=== PATIENT | male | born 1995 | race Caucasian/White ===

== ENCOUNTER 2018-12-12 21:07 | Emergency (ER) | payer OTHER, SELFPAY ==
[2018-12-12 21:08] VITALS: BP 142/86; PULSE 103; RESP 16; TEMP 36.6; O2SAT 98; BMI 28.2
--- NOTE | 2018-12-12 21:45 | ED.VISSUMM ---
- ER Visit Summary Date of Service: 12/12/18 Chief Complaint: Right thumb laceration History of Present Illness: The patient is a 23 M hand dominant. Past medical history. Tetanus is about 9 years old and he does not want an updated. He was working on his car when he cut his right thumb on the dorsum on sheet-metal. This occurred about 5 PM. He denies any numbness. He has normal range of motion. Denies any other injuries. Physical Examination: Well-appearing young male. Vital signs stable afebrile. Lungs are clear. Heart regular rhythm no murmur. Abdomen is soft. Right hand the dorsum of the right thumb tween the MCP and interphalangeal joint is about a 3 cm laceration above the skin and subcu tissue. Currently there is no bleeding. No signs of foreign body or infection. He has full flexion and extension against resistance of the right thumb. He can extend to 180 degrees. There is no bony deformity or tenderness. There is no signs of infection. The distal thumb is neurovascular intact with normal touch sensation and cap refill. Test Results: None Emergency Department Course and Treatment: Note: Right thumb laceration. At the patient wash his hands all thoroughly in the sink. The area was then locally anesthetized with lidocaine. Wound was cleaned with Shur-Clens explored and irrigated. Closed using three 4-0 Ethilon simple interrupted sutures. Proper hemostasis wound closure obtained. Patient tolerated procedure well. Treatment Plan: Wound care. Suture removal 10 days. Return if any signs of infection or problems. Disposition: Discharge Impression: Right thumb laceration 3 cm with ER repair This note was generated with PowerCard dictation software. It may contain incorrect words, spelling, and punctuation that were not noted in review of the chart prior to signing ED Disposition - Plan for ED Patient: Referrals: Care Physician,No Primary [Primary Care Provider] -
--- NOTE | 2018-12-12 21:47 | ED.DEP ---
ED Disposition - Plan for ED Patient: Disposition: Home or Assisted Living Instructions: LACERATION, Hand Referrals: Ga Otero MD [STAFF PHYSICIAN] - 10 Day for suture removal Additional Instructions: Wound clean and dry. Apply antibiotic ointment daily. Stitches out in 10 days. Return if any signs of infection.
== END 2018-12-12 22:08 | disposition home or self-care (01) ==
PROVIDERS: Emergency Provider Emergency Medicine
DX: S61.011A Laceration without foreign body of right thumb without damage to nail, initial encounter (principal); W26.8XXA Contact with other sharp object(s), not elsewhere classified, initial encounter; Y93.89 Activity, other specified
CPT/HCPCS: 12002; 99284

== ENCOUNTER 2019-06-18 23:16 | Emergency (ER) | payer OTHER, SELFPAY ==
[2019-06-18 23:16] VITALS: BP 125/60; PULSE 84; RESP 18; TEMP 36.6; O2SAT 98; BMI 28.7
--- NOTE | 2019-06-18 23:23 | ED.DCSUM_ITS ---
History of Present Illness Chief Complaint: Upper Extremity Injury Informant: Patient Onset: Today Context: Gradual Onset Timing: Continuous Current Severity: Moderate Maximum Severity: Moderate Narrative: Patient is a 23-year-old male with no significant medical history that presents to the emergency department with atraumatic right wrist pain. Patient states he had a fracture when he was in eighth grade. He woke this morning with pain in his wrist. He states most of the pain is with wrist extension. He cannot recall any specific trauma. He is not taken anything for his pain. He denies any radiation into the hand or weakness. Prior similar symptoms: Yes Recent Illness/Hospitalization: No Past Medical History - Allergies and Home Meds Allergies/Adverse Reactions: Allergies No Known Allergies Allergy (Verified 06/18/19 23:18) Primary Care Physician: Care Physician,No Primary [Primary Care Provider] - Prior records reviewed: Yes Past Medical History: None Surgical History: no surgical history Smoking Status: Never smoker Review of Systems General: Denies: Chills, Fever, Sweats Eyes: Denies: Visual changes - bilaterally, Diplopia ENT: Denies: Rhinorrhea, Sore throat Cardiovascular: Denies: Chest pain, Palpitations Respiratory: Denies: Dyspnea, Cough, Dyspnea on exertion Gastrointestinal: Denies: Abdominal pain, Nausea, Vomiting, Diarrhea, Melena, Hematochezia Genitourinary: Denies: Dysuria, Hematuria, Frequency Musculoskeletal: Denies: Back pain, Extremity Pain Skin: Denies: Rash, Wounds Neurological: Denies: Headache, Weakness, Numbness Physical Exam Vital Signs/Narrative: Vital Signs Temp Pulse Resp BP Pulse Ox 06/18/19 23:16 97.9 F 84 18 125/60 H 98 Inital Vital Signs reviewed: Yes General: Well nourished, Well developed, No Acute Distress Head: Normocephalic, Atraumatic Eyes: Perrl, EOMI ENT: Moist mucous membranes, No rhinorrhea Neck: Supple, Nontender Cardiovascular: Regular rate, Regular rhythm, No murmurs Respiratory: No distress, CTA bilaterally, Chest nontender Abdomen: Soft, Nontender, Nondistended, Normal bowel sounds Back: Nontender, Normal Inspection Extremities: No edema, Tenderness - Tender on dorsum of right wrist. Normal pulses. No laxity or erythema. Skin: Normal color, No rash Neurological: Alert, Oriented x3, Cranial nerves II-XII grossly intact, Normal Strength, Normal Sensation Psychological: Normal affect, Normal Mood Diagnostic/Tx/Re-eval Clinical Impression(s) from Imaging Studies Wrist X-Ray 06/18/19 23:28 IMPRESSION: Normal x-ray examination of the wrist. Electronically Signed: Lisandro Lai MD at 23:44 EDT , Service support , - Medical Decision Making The patient presents with atraumatic right wrist pain. It does seem more tendinitis in nature. He has had no trauma. He does have repetitive use of the right wrist when he was at work. I did obtain plain films. These are unremarka ble for acute fracture. The patient was placed in a Velcro splint for comfort. He will be given anti-inflammatories and outpatient orthopedic follow-up as needed. Impression 1. Tendinitis right wrist ED Disposition - Plan for ED Patient: Instructions: ED Sprain Wrist Prescriptions: Naproxen [Naprosyn] 500 mg PO BID PRN #20 tab Prescription Printed Referrals: Andrea Marshall MD [STAFF PHYSICIAN] - 3-5 Days if not improving
--- NOTE | 2019-06-18 23:28 | RAD_ITS ---
STUDY: X-RAY - RIGHT WRIST REASON FOR EXAM: Male, 23 years old. WOKE UP WITH RIGHT WRIST PAIN AND DENIES INJURY -- PT HAS BROKEN WRIST BEFORE TECHNIQUE: 3 view(s) of the wrist were obtained. COMPARISON: None. FINDINGS: Normal visualized distal radius and ulna. Normal radiocarpal articulation. Normal distal radioulnar articulation. Normal carpal bones. Normal carpal articulations. Normal carpometacarpal articulation of the thumb. Normal second through fifth carpometacarpal articulations. Normal visualized metacarpal bones. The soft tissue structures are unremarkable. There is no demonstrated acute fracture. RAD/Wrist min 3 Views IMPRESSION: Normal x-ray examination of the wrist. Electronically Signed: Lisandro Lai MD at 23:44 EDT , Service support ,
[2019-06-18 23:56] VITALS: BP 125/60; PULSE 84; RESP 18; O2SAT 98
== END 2019-06-18 23:57 | disposition home or self-care (01) ==
LOC: ED 23:41
PROVIDERS: Emergency Provider Emergency Medicine
DX: M77.9 Enthesopathy, unspecified (principal)
CPT/HCPCS: 73110; 99283

== ENCOUNTER 2019-06-24 22:14 | Emergency (ER) | payer OTHER, SELFPAY ==
[2019-06-24 22:16] VITALS: BP 158/83; PULSE 108; RESP 18; TEMP 37.3; O2SAT 98; BMI 28.1
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
== END 2019-06-24 23:02 | disposition home or self-care (01) ==
PROVIDERS: Emergency Provider Emergency Medicine
DX: S40.012A Contusion of left shoulder, initial encounter (principal); S00.83XA Contusion of other part of head, initial encounter; V89.2XXA Person injured in unspecified motor-vehicle accident, traffic, initial encounter; Y93.89 Activity, other specified; Y92.410 Unspecified street and highway as the place of occurrence of the external cause; Z72.0 Tobacco use
CPT/HCPCS: 99282

== ENCOUNTER 2020-03-23 21:15 | Emergency (ER) | payer OTHER, SELFPAY ==
[2020-03-23 21:16] VITALS: BP 114/70; PULSE 112; RESP 16; TEMP 37.6; O2SAT 100; BMI 27.6
--- NOTE | 2020-03-23 21:41 | ED.VIS.GEN ---
History of Present Illness Chief Complaint: General Illness Narrative: Patient presents with myalgias, subjective fevers, and generalized illness he is worried about Covid. He did not lose his sense of smell or taste. He has no respiratory difficulties. He has no abdominal pain chest pain shortness of breath or urinary symptoms. He denies any neck pain or neck stiffness. He does not have a headache. Review of systems: All systems negative except as indicated General: Denies: Fever. He admits to generalized weakness and illness Eyes: Denies: Visual changes - bilaterally ENT: Denies: Rhinorrhea, Sore throat Cardiovascular: Denies: Chest pain Respiratory: Denies: Dyspnea, Cough Gastrointestinal: Denies: Abdominal pain, Nausea, Vomiting Genitourinary: Denies: Dysuria Musculoskeletal: Myalgias Skin: Denies: Rash Neurological: Denies: Headache, no focal weakness Psych: Reports: negative Hematologic: Denies: Easy bruising, Easy bleeding Physical exam General: Well nourished, Well developed, No Acute Distress, he is relatively comfortable in the bed. Head: Normocephalic, Atraumatic Eyes: Conjunctiva not pale ENT: Moist mucous membranes Neck: Supple, Nontender, No lymphadenopathy Cardiovascular: Regular rate, Regular rhythm Respiratory: No distress, CTA bilaterally Abdomen: Soft, Nontender, Nondistended Back: Nontender, Normal Inspection. Negative for: CVA tenderness Extremities: Nontender, No edema Skin: Normal color, No rash Neurological: Alert, Normal Strength, Normal Sensation Psychological: Normal affect Past Medical History - Allergies and Home Meds Allergies/Adverse Reactions: Allergies No Known Allergies Allergy (Verified 03/23/20 21:18) Primary Care Physician: Care Physician,No Primary [Primary Care Provider] - Past Medical History: None Surgical History: no surgical history Smoking Status: Former smoker Physical Exam Vital Signs/Narrative: Vital Signs Temp Pulse Resp BP Pulse Ox 03/23/20 21:16 99.7 F H 112 H 16 114/70 100 Diagnostic/Tx/Re-eval - Medical Decision Making I will test for Covid, however in the meantime I told the patient he needs to quarantine, at this time he does not have a job but he is to quarantine from anyone else. He is young healthy and unremarkable vitals other than slight tachycardia at home believe further testing is needed he appears well. ED Disposition - Plan for ED Patient: Disposition: Home or Assisted Living Diagnosis: COVID-19 virus IgM antibody test result unknown Instructions: Coronavirus Disease 2019 (COVID-19): Overview, Coronavirus Disease 2019 (COVID-19): Caring for Yourself or Others, Preventing the Spread of Infection Understanding Isolation Procedures Referrals: Care Physician,No Primary [Primary Care Provider] - 2 Days
[2020-03-23 22:01] VITALS: BP 149/57; PULSE 71; RESP 16; O2SAT 99
== END 2020-03-23 22:02 | disposition home or self-care (01) ==
LOC: ED 21:59
PROVIDERS: Emergency Provider Emergency Medicine
DX: U07.1 COVID-19 (principal); Z87.891 Personal history of nicotine dependence
CPT/HCPCS: 87635; 99282; U0003

== ENCOUNTER 2021-09-24 12:10 | Emergency (ER) | payer OTHER, SELFPAY ==
[2021-09-24 12:10] VITALS: BP 120/85; PULSE 99; RESP 14; TEMP 36.5; O2SAT 97; BMI 25.1
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
[2021-09-24] MEDS: HYDROcodone Bitartrate/Apap 5/325 Tablet PO (13:35)
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
== END 2021-09-24 14:49 | disposition home or self-care (01) ==
PROVIDERS: Emergency Provider Emergency Medicine; Visit Provider Emergency Medicine
DX: S09.90XA Unspecified injury of head, initial encounter (principal); S00.01XA Abrasion of scalp, initial encounter; S43.52XA Sprain of left acromioclavicular joint, initial encounter; J45.909 Unspecified asthma, uncomplicated; V49.40XA Driver injured in collision with unspecified motor vehicles in traffic accident, initial encounter; Z87.891 Personal history of nicotine dependence
CPT/HCPCS: 70450; 73030; 99283

== ENCOUNTER 2022-01-22 13:06 | Emergency (ER) | payer MEDICAID, SELFPAY ==
[2022-01-22 13:07] VITALS: BP 138/95; PULSE 102; RESP 18; TEMP 36.6; O2SAT 100; BMI 28.7
--- NOTE | 2022-01-22 13:56 | EX.ED.VIS.PS ---
HPI HPI - Psych History of Present Illness Chief Complaint: Suicidal Detail of Chief Complaint: Depressed Informant: patient Onset/Context/Timing Onset: Weeks Context: Gradual Onset Timing: Intermittent Current Severity: Mild Maximum Severity: Mild Associated Symptoms Associated Symptoms - Psych: Positive for Depressed and Suicidal Thoughts; Negative for Change in Eating, Change in sleeping, Decreased Interest, Guilt, Grandiosity, Flight of Ideas, Pressured Speech, Agitated, Angry, Hostile, Threatening, Confusion, Paranoia, Visual Hallucinations or Auditory Hallucinations Specific plan (suicidal thought): No specific plan. Narrative Narrative: 26-year-old male has a history of substance abuse. Today he was speaking to his contact of 180. They thought he seemed depressed and sent him in for evaluation. He tells me has had a long history depression. He occasionally gets suicidal thoughts. He is never acted on them. He does not feel like he would act on them. He has never attempted suicide nor does he have a specific plan. He has never been placed in a psychiatric hospital. Prior similar symptoms: Yes Recent Illness/Hospitalization: No PFSH PFSH Medical History Asthma Home Medications NK 06/24/19 [History Last Taken Unknown] Allergy/AdvReac Type Severity Reaction Status Date / Time No Known Allergies Allergy Verified 01/22/22 13:07 Social History Smoking Status: Former smoker ROS ROS ED ROS Narrative Depression. Review of Systems ROS Unobtainable: Denies due to encephalopathy Constitutional Constitutional ED: Denies chills or fever(s) Eyes Eyes: Denies blurry vision ENT ENT ED: Denies ear pain Cardiovascular Cardiovascular: Denies chest pain Respiratory/Chest Respiratory/Chest: Denies cough Gastrointestinal Gastrointestinal: Denies abdominal pain Genitourinary Genitourinary ED: Denies dysuria Musculoskeletal Musculoskeletal: Denies arthralgias Integumentary Denies abscess Neurologic Neurologic: Denies headache(s) Psychiatric Psychiatric: Reports anxiety, depression and suicidal thoughts Endocrine Endocrinology: Denies polydipsia Hematologic/Lymphatic Hematologic/Lymphatic: Denies easy bleeding Allergic/Immunologic Allergic/Immunologic ED: Denies mouth swelling or tongue swelling EXAM Physical Exam Narrative Exam Narrative: Well-appearing 26-year-old male. Vital signs stable afebrile. Patient is awake and alert. Calm. Interactive. Makes eye contact. Not violent. Not verbally abusive. H EENT exam unremarkable. Neck nontender. Lungs clear to auscultation. Heart regular rhythm no murmur rate about 100. Chest were nontender. Abdomen soft nontender. Moving all 4 extremities. No acute signs of trauma or cutting. Neurologically is awake and alert with no focal motor deficits. No toxidrome. Const Vital Signs: 01/22/22 13:07 Temperature 98 F Temperature Source Temporal Pulse Rate 102 H Respiratory Rate 18 Blood Pressure 138/95 H Blood Pressure Mean 109 Pulse Ox 100 Oxygen Delivery Method Room Air Positive well nourished and well developed; Negative for obese, cachectic, contractures or unkempt General Appearance ED: well developed and NAD; Negative for unkempt, cachectic, contractures or pallor Nutritional Appearance: Negative for cachectic or obese HEENT Reports moist mucous membranes normocephalic and atraumatic; Negative for trauma or tenderness Eyes PERRL and EOMs intact bilaterally General Eye ED: Negative for pale conjunctiva or scleral icterus Neck no lymphadenopathy, supple and no JVD General: Negative for tenderness Resp normal respiratory effort and clear to auscultation bilaterally Effort and Inspection: Negative for retractions Auscultation: Negative for rales, rhonchi, wheezes or diminished lung sounds Cardio S1 normal heart sound, S2 normal heart sound and no murmurs Palpation: Negative for other Rate: regular rate Rhythm: regular rhythm GI non-tender, non-distended and no masses Inspection: Negative for abdominal distention Auscultation: normoactive bowel sounds Palpation: soft; Negative for tender or guarding Back/Spine no CVA tenderness General Back: Negative for CVA tenderness Cervical Spine: Negative for cervical spine tenderness Thoracic Spine / Upper Back: Negative for thoracic spinal tenderness Lumbar Spine / Lower Back: Negative for lumbar spinal tenderness Coccyx: Negative for other Extremity normal to inspection General Extremety ED: Negative for edema or tenderness General Extremity: Negative for edema Neuro oriented x3 and CN's II-XII intact bilaterally Sensorium / Orientation: alert, oriented to person, oriented to place and oriented to time; Negative for orientation impaired, confused, lethargic or stuporous Motor Exam: strength 5/5 throughout Psych mental status grossly normal, thought process normal, cooperative, affect normal, speech normal, activity/motor behavior normal, denies hallucinations and denies homicidal ideation Appearance: grossly normal, appropriate and well kempt; Negative for unkempt, disheveled, bizarre or intubated Attitude: calm, engaged, No paranoid, No withdrawn, No bizarre, No uncooperative, No evasive, No guarded, No belligerent and No agitated Activity / Motor Behavior: appropriate eye contact; Negative for psychomotor agitation, psychomotor slowing, fidgetting, hyperactive, disorganized, restless, mannerisms, stereotypies or avoids eye contact Speech: normal speech, No incoherent, No excessive, No minimal, No slow, No rapid, No soft, No loud and No delayed Mood & Affect: depressed Thought Process: normal thought process, No circumstantial, No incoherent, No disorganized, No confused, No confabulating, No flight of ideas, No illogical, No impoverished, No loose associations, No perseverating, No tangential, No word salad and No racing thoughts Thought Content: normal thought content Attention / Concentration: attention grossly intact Memory / Cognition: memory grossly intact Insight: insight good Judgement: judgement good Skin General Skin Exam: Negative for jaundice or pallor Lesions: no lesions Rashes: no rashes Trauma: Negative for abrasion Wounds: Negative for amputation MDM MDM MDM Narrative Medical decision making narrative: 26-year-old male history of substance abuse he is 180. Dealing also with depression. They sent him in for evaluation. He has never had a suicide attempt. States he would not. Will contract for safety. Has never been hospitalized for mental health issues. He is also being evaluated by her psychologist social. If she and I and he agreed he will be discharged home with outpatient follow-up. Discharge Plan Triage Chief Complaint: Suicidal Other Complaint: Mental Health ED Provider: Ken Lynn Dx/Rx/DC Orders Clinical Impression: Depression Instructions: ED Depression Prescriptions: No Action NK Primary Care Provider: Care Physician,No Primary Referrals: Counseling,Center [Group of Physicians] - As soon as possible Care Physician,No Primary [Primary Care Provider] - Activity Restrictions/Additional Instructions: Return if you feel like you would harm yourself or anyone else. Follow-up with the counseling center Disposition Disposition: Home, Self Care
[2022-01-22 14:25] VITALS: BP 141/98; PULSE 78; RESP 18; O2SAT 97
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
== END 2022-01-22 14:45 | disposition home or self-care (01) ==
PROVIDERS: Emergency Provider Emergency Medicine; Visit Provider Emergency Medicine
DX: R45.851 Suicidal ideations (principal); F32.A Depression, unspecified; F41.9 Anxiety disorder, unspecified; Z87.891 Personal history of nicotine dependence
CPT/HCPCS: 99282

== ENCOUNTER → 2022-04-18 | Outpatient (CLI) | payer MEDICAID, SELFPAY ==
[2022-04-18 12:26] LABS: Absolute Lymphocyte Count 1.82 X10^3/uL (0.83-4.51); Absolute Neutrophil Count 3.5 X10^3/uL (2.0-7.7); Basophil# 0.07 X10^3/uL; Basophil% 1.1 % (0-1); Eosinophil# 0.27 X10^3/uL; Eosinophils% 4.3 % (0-5); Hemoglobin 15.3 g/dL (13.0-16.5); Lymphocyte # 1.82 X10^3/ul (0.83-4.51); Lymphocyte % 29.1 % (19-41); Mean Corp Hgb Conc 32.6 g/dL (32-36); Mean Corpuscular Hgb 29.7 pg (27.0-32.0); Mean Corpuscular Volume 91.1 fL (80-94); Mean Platelet Vol. 9.6 fl (6.2-12.0); Monocyte# 0.56 X10^3/uL; NRBC Flagged by Analyzer 0 % (0-5); Platelet Count 280 K/mm3 (150-450); RBC Distribution Width CV 12.9 % (11.6-14.6); RBC Distribution Width SD 42.7 fl (35.1-43.9); Red Blood Count 5.16 M/mm3 (4.6-6.2); White Blood Count 6.3 K/mm3 (4.4-11.0)
[2022-04-18 13:52] LABS: ALB/GLOB Ratio 1.1 RATIO (0.9-2.4); AST(SGOT) 24 U/L (15-37); Alanine Aminotransfer ALT/SGPT 49 U/L (16-61); Albumin, Serum 3.9 g/dL (3.2-5.0); Alkaline Phosphatase 76 U/L (45-117); Anion Gap 8 (5-15); BUN 15 mg/dL (7-18); Chloride 105 mmol/L (98-107); Creatinine, Serum 0.94 mg/dL (0.70-1.30); EST Glomerular Filtration Rate 103 mL/min (>60); Est Glom Filt Rate - Afr Amer 125 mL/min (>60); Globulin 3.5 g/dL (2.2-4.2); Glucose 105 mg/dL (74-106); Protein, Total 7.4 g/dL (6.4-8.2); Sodium Level 142 mmol/L (136-145); Thyroid Stim Hormone (TSH) 1.87 uIU/mL (0.358-3.74)
[2022-04-18 14:58] LABS: HIV - WCH Non-Reactive (Nonreactive); Vitamin D,25 Hydroxy 18.6 ng/mL
[2022-04-19 10:08] LABS: HEPATITIS B SURFACE AG Negative (Negative); Hep C Antibodies <0.1 s/co ratio (0.0-0.9); Hepatitis A IgM Antibody Negative (Negative); Hepatitis B Core AB IgM Negative (Negative)
== END | disposition home or self-care (01) ==
LOC: BIMLAB 09:18
PROVIDERS: PCP Internal Medicine; Referring Provider Internal Medicine; Visit Provider Internal Medicine
DX: F32.A Depression, unspecified (principal); F19.11 Other psychoactive substance abuse, in remission; F41.9 Anxiety disorder, unspecified
CPT/HCPCS: 36415; 80053; 80074; 82306; 84443; 85025; 86703

== ENCOUNTER 2022-04-27 10:09 | Emergency (ER) | payer MEDICAID, SELFPAY ==
[2022-04-27 10:11] VITALS: BP 126/70; PULSE 100; RESP 16; TEMP 36.4; O2SAT 97; BMI 33.6
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
--- NOTE | 2022-04-27 11:15 | RAD_ITS ---
EXAM: XR LUMBOSACRAL SPINE, 2 OR 3 VIEWS CLINICAL INDICATION: Fall injury. TECHNIQUE: Frontal and lateral views of the lumbar spine and sacrum. This report was created using [employer] report generation technology. COMPARISON: None. FINDINGS: VERTEBRAE: Unremarkable. Preserved vertebral body height. No fracture. No spondylolisthesis. Preservation of the normal lumbar lordosis. No significant facet arthropathy. DISC SPACES: No acute findings. Disc spaces are maintained. GASTROINTESTINAL TRACT: Unremarkable as visualized. Included bowel gas pattern is non-obstructive. RAD/Lumbar Spine 2 or 3 Views IMPRESSION: Normal lumbar spine radiographs. Electronically Signed: Emil Gallo MD at 11:34 EST ,
--- NOTE | 2022-04-27 11:15 | RAD_ITS ---
EXAM: XR RIGHT HIP WITH PELVIS WHEN PERFORMED, 2 OR 3 VIEWS CLINICAL INDICATION: fall TECHNIQUE: Two or three views of the right hip with pelvis when performed. This report was created using [employer] report generation technology. COMPARISON: None. FINDINGS: BONES/JOINTS: Unremarkable. No displaced fracture. No destructive or sclerotic lesions. Note that overlapping bowel shadows may however obscure fine detail. Sacroiliac joint is unremarkable. No widening of the pubic symphysis. The articular structures are unremarkable. SOFT TISSUES: Unremarkable. No soft tissue swelling or gas. RAD/HIP, UNI W/ Pelvis 2-3 Views IMPRESSION: Normal pelvis and right hip radiographs. Electronically Signed: Emil Gallo MD at 11:33 EST ,
[2022-04-27] MEDS: Acetaminophen 500 MG Tablet 1000 MG PO (11:43)
== END 2022-04-27 11:45 | disposition home or self-care (01) ==
PROVIDERS: Emergency Provider Emergency Medicine; PCP Internal Medicine; Visit Provider Emergency Medicine
DX: S30.0XXA Contusion of lower back and pelvis, initial encounter (principal); S70.01XA Contusion of right hip, initial encounter; V18.0XXA Pedal cycle driver injured in noncollision transport accident in nontraffic accident, initial encounter; Y92.480 Sidewalk as the place of occurrence of the external cause; Y93.55 Activity, bike riding; Y99.8 Other external cause status; F17.210 Nicotine dependence, cigarettes, uncomplicated; F17.220 Nicotine dependence, chewing tobacco, uncomplicated
CPT/HCPCS: 72100; 73502; 99283

== ENCOUNTER 2024-09-01 07:56 | Emergency (ER) | payer MEDICAID, SELFPAY ==
[2024-09-01 07:57] VITALS: TEMP 36.6
[2024-09-01 08:00] VITALS: PULSE 61; RESP 18; TEMP 36.9; O2SAT 100; O2SAT 98; BMI 23.6
--- NOTE | 2024-09-01 08:07 | EX.ED.CRITCA ---
HPI History of Present Illness Chief Complaint: Cardiac Arrest Detail of Chief Complaint: Cardiac arrest Informant: EMS Narrative Narrative: Patient brought to the emergency department via EMS in full cardiac arrest. Patient per friend apparently overdosed on methamphetamines. EMS found patient unresponsive and in PEA. Patient had total of 6 mg of Narcan. 2 mg IV and 4 mg intranasal. Patient was not intubated and was being bagged on arrival. IV line had been established and epinephrine was given IV. Patient was found to have dilated pupils per EMS. Unknown medical history. Unknown route of methamphetamine ingestion. [facility] Medical History (Updated 09/01/24 @ 08:[address] Angela Gentile, DO) Headache, migraine Depression History of drug abuse History of fracture Asthma Home Medications Medication Instructions Recorded Last Taken Type quetiapine 50 mg tablet 50 mg PO DAILY 04/10/22 Unknown History trazodone 100 mg tablet 100 mg PO DAILY 04/10/22 Unknown History Allergy/AdvReac Type Severity Reaction Status Date / Time No Known Allergies Allergy Verified 04/27/22 10:10 Family History (Updated 04/18/22 @ 08:[address] Roula Awad MD) Father Asthma Diabetes Sister Asthma Grandmother Cancer lung Grandfather Cancer lung Diabetes Surgical History History of appendectomy Social History (Updated 04/18/22 @ 08:[address] Roula Awad MD) household members: other details: LIVES AT [facility] current occupational status: unemployed sexually active: No Smoking Status: Current some day smoker tobacco type: cigarettes Smokeless tobacco user: chewing tobacco, snuff and snus Electronic Cigarette Use: with nicotine alcohol intake: former substance use type: former substance user Date of last use: 02/2022, marijuana and methamphetamine what type of physical activity do you participate in: none seatbelt use: always do you feel safe at home: Yes ROS ROS ED Review of Systems ROS Unobtainable: due to mental status EXAM Physical Exam Narrative Exam Narrative: Patient had CPR in progress on arrival. Patient unresponsive. Patient on arrival was intubated with a 7.5 ET tube and had good breath sounds bilaterally and color change. He received epinephrine IV. He received sodium bicarb IV. Continued CPR. On pulse check patient continues to be in PEA. Patient given a second dose of epinephrine and CPR continued. Patient had a pulse check again and continues to be in PEA. Used ultrasound to evaluate cardiac activity and there was no cardiac activity. Downtime over 40 minutes at this point. Time of 8:07 AM. Const Vital Signs: 09/01/24 07:57 Temperature 97.8 F Temperature Source Oral Positive well nourished and well developed General Appearance ED: well developed and NAD HEENT Reports TM's clear and moist mucous membranes normocephalic and atraumatic; Negative for trauma or tenderness Tympanic Membrane ED: Yes TM's clear Eyes Eyes Narrative: Pupils fixed and dilated at 7 mm General Eye ED: Negative for pale conjunctiva or scleral icterus Neck no lymphadenopathy, supple and no JVD General: Negative for tenderness Chest Wall inspection of chest normal and palpation of chest normal Chest: Negative for tenderness Resp No normal respiratory effort and No clear to auscultation bilaterally Resp Narrative: No respiratory effort on arrival. Effort and Inspection: Negative for respiratory distress or pain with movement Auscultation: Negative for rhonchi, wheezes or diminished lung sounds Cardio regular rate, regular rhythm, S1 normal heart sound, S2 normal heart sound and no murmurs Cardio Narrative: Once CPR was discontinued noted to be in PEA. Peripheral Pulses: pulses 2+ throughout GI normal to inspection, nondistended, normoactive bowel sounds, soft to palpation, non-tender, non-distended and no masses Back/Spine no CVA tenderness and no thoracic nor lumbar tenderness Extremity normal to inspection General Extremety ED: Negative for edema General Extremity: Negative for edema Neuro oriented x3, CN's II-XII intact bilaterally, no sensory deficits noted and gait normal Sensorium / Orientation: awake, alert, oriented to person, oriented to place and oriented to time Motor Exam: strength 5/5 throughout and strength abnormal Psych mental status grossly normal Skin no rashes or lesions noted and no wounds Discharge Plan Triage Chief Complaint: Cardiac Arrest ED Provider: Angela Gentile Dx/Rx/DC Orders Clinical Impression: Cardiac arrest, Prescriptions: No Action trazodone 100 mg tablet 100 mg PO DAILY quetiapine 50 mg tablet 50 mg PO DAILY Primary Care Provider: Roula Awad Referrals: Roula Awad MD [Primary Care Provider] - Print Language: Malaysian Disposition Disposition:
--- NOTE | 2024-09-01 08:16 | ED.RN ---
ems called at 0725, pt was responsive when ems arrived. states "loaded him and pt went to pea". freda picked up [place] [address] on [address]. scow captain pt. had 2 doses of narcan intranasally and 1 dose iv, pt also had 2 rounds of epi. upon arrival 0758 pt. was moved to ed bed pulse check showed pea, and 1 of epi was given. cpr continued. at 0800 bicarb was given pt still pea. 0802 pt was still in pea, cpr continued. 0803 epi was given. cpr continued. 0804 pt still pea, cpr continued. 0806 dr. cortez check cardiac function with ultrasound no pulse felt, no cardiac movement. 0807 dr. cortez calls time of .
--- OUTSIDE RECORDS SUMMARY | 2024-09-01 08:27 | XMS RPT_ITS | CCD ---
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 or pulsatile masses. No hepatosplenomegaly Extremities: No peripheral edema, no signs of gross trauma or deformity. Active full range of motion of all extremities. Neuro: Cranial nerves II through XII intact, no focal neurological deficits. Skin: Clean dry and intact with no rash, purpura, petechiae, vesicles or pustules. Backs/flank: No CVA tenderness, no midline spinal tenderness, no deformity. Patient has tenderness just above the right buttock, negative for any ecchymosis, negative for any abrasions. Psych: Normal mood and affect. No SI, HI or acute psychosis. Const Vital Signs: 04/27/22 10:11 Temperature 97.6 F L Temperature Source Temporal Pulse Rate 100 Respiratory Rate 16 Blood Pressure 126/70 H Blood Pressure Mean 88 Pulse Ox 97 Oxygen Delivery (more content not included)... Normal [facility] HIP, UNI W/ Pelvis 2-3 Views on 04-27-2022 HIP, UNI W/ Pelvis 2-3 Views [facility] Imaging Services [address] [place] [address] HIP, UNI W/ Pelvis 2-3 Views MR#: [id number] Acct: [id number] Name: STEPHANIA ORO Rep #: [id number] : 1995 M 26 From: Emil Gallo MD PCP: Dr. Roula Awad MD Status: PRE ER Study: HIP, UNI W/ Pelvis 2-3 Views Date of Exam: 02/06 Exam# [id number] Ordering Dr: Mt Gutierrez CHIEF ENTERPRISE ARCHITECT-C EXAM: XR RIGHT HIP WITH PELVIS WHEN PERFORMED, 2 OR 3 VIEWS CLINICAL INDICATION: fall TECHNIQUE: Two or three views of the right hip with pelvis when performed. This report was created using [employer] report generation technology. COMPARISON: None. FINDINGS: BONES/JOINTS: Unremarkable. No displaced fracture. No destructive or sclerotic lesions. Note that overlapping bowel shadows may however obscure fine detail. Sacroiliac joint is unremarkable. No widening of the pubic symphysis. The articular structures are unremarkable. SOFT TISSUES: Unremarkable. No soft tissue swelling or gas. RAD/HIP, UNI W/ Pelvis 2-3 Views IMPRESSION: Normal pelvis and right hip radiographs. Electronically Signed: Emil Gallo MD at 11:33 EST , CC: PANKAJ Gutierrez; Dr. Roula Awad MD Outside Barrel Lathe Operator: Signed Normal [facility] Lumbar Spine 2 or 3 Viewson 04-27-2022 Lumbar Spine 2 or 3 Views [facility] Imaging Services [address] [place] [address] Lumbar Spine 2 or 3 Views MR#: [id number] Acct: [id number] Name: STEPHANIA ORO Rep #: [id number] : 1995 M 26 From: Emil Gallo MD PCP: Dr. Roula Awad MD Status: PRE ER Study: Lumbar Spine 2 or 3 Views Date of Exam: Exam# [id number] Ordering Dr: Mt Gutierrez CHIEF ENTERPRISE ARCHITECT-C EXAM: XR LUMBOSACRAL SPINE, 2 OR 3 VIEWS CLINICAL INDICATION: Fall injury. TECHNIQUE: Frontal and lateral views of the lumbar spine and sacrum. This report was created using [employer] report generation technology. COMPARISON: None. FINDINGS: VERTEBRAE: Unremarkable. Preserved vertebral body height. No fracture. No spondylolisthesis. Preservation of the normal lumbar lordosis. No significant facet arthropathy. DISC SPACES: No acute findings. Disc spaces are maintained. GASTROINTESTINAL TRACT: Unremarkable as visualized. Included bowel gas pattern is non-obstructive. RAD/Lumbar Spine 2 or 3 Views IMPRESSION: Normal lumbar spine radiographs. Electronically Signed: Emil Gallo MD at 11:34 EST , CC: PANKAJ Gutierrez; Dr. Roula Awad MD Outside Barrel Lathe Operator: Signed Normal [facility] Hepatitis Panel Acuteon COMMENT Comment Normal . [facility] Comment on above: Result Comment: Nega tive Not infected with HCV, unless recent infection is suspected or other evidence exists to indicate HCV infection. Performed at: - [facility] [id number] Line Runner: Tima Rubi PhD, Phone: [phone] Performed By: #### L 506.1000, L589.0820, L3214.8858, L500.4050, L3000.0375, L100.0100 ####[facility] [address] [place], [address] HEP B CORE,IgM Negative Normal Negative [facility] Comment on above: Performed By: #### L 506.1000, L501.9520, L3890.6005, L500.4050, L3000.0375, L100.0100 ####[facility] [address] [place], [address] HEP B SURF AG Negative Normal Negative [facility] Comment on above: Performed By: #### L 506.1000, L501.9520, L3890.6005, L500.4050, L3000.0375, L100.0100 ####[facility] [address] [place], [address] HEP C VIRUS AB <0.1 Normal 0.0-0.9 [facility] Comment on above: Performed By: #### L 506.1000, L501.9520, L3890.6005, L500.4050, L3000.0375, L100.0100 ####[facility] [address] [place], [address] HEPATITIS A-IgM Negative Normal Negative [facility] Comment on above: Performed By: #### L 506.1000, L501.9520, L3890.6005, L500.4050, L3000.0375, L100.0100 ####[facility] [address] [place], [address] Absolute lymphocyte countOrd ered By: Dr. Awad on 04-18-2022 Lymphocytes Auto (Unsp spec) [#/Vol] 1.82 10*3/uL 0.83-4.51 [facility] Basophil percentageOrdered B y: Dr. Awad on 04-18-2022 Basophils/100 WBC (Bld) 1.1 % 0-1 [facility] Bilirubin [Mass/Vol] 1.00 mg/dL 0.20-1.00 [facility] Comment on above: For patients on eltr ombopag therapy, use of Dimension Irene TBIL is not recommended. Chloride [Moles/Vol] 105 mmol/L 98-107 [facility] Eosinophils/100 WBC (Bld) 4.3 % 0-5 [facility] Glucose [Mass/Vol] 105 mg/dL 74-106 [facility] Comment on above: Fasting Glucose resu lt from 100 to 125 mg/dL suggests IMPAIRED HOMEOSTASIS per A.D.A. criteria. Neutrophils (Bld) [#/Vol] 3.5 10*3/uL 2.0-7.7 [facility] Neutrophils/100 WBC (Bld) 56.0 % 47-70 [facility] Potassium [Moles/Vol] 4.0 mmol/L 3.5-5.1 [facility] Protein [Mass/Vol] 7.4 g/dL 6.4-8.2 [facility] Sodium [Moles/Vol] 142 mmol/L 136-145 [facility] WBC (Bld) [#/Vol] 6.3 10*3/uL 4.4-11.0 [facility] Blood erythrocytes count (nu mber/volume)Ordered By: Dr. Awad on 04-18-2022 RBC (Bld) [#/Vol] 5.16 10*6/uL 4.6-6.2 [facility] Blood hemoglobin measurement (mass/volume)Ordered By: Dr. Awad on 04-18-2022 Hemoglobin (Bld) [Mass/Vol] 15.3 g/dL 13.0-16.5 [facility] Blood lymphocytes/100 leukoc ytesOrdered By: Dr. Awad on 04-18-2022 Lymphocytes/100 WBC (Bld) 29.1 % 19-41 [facility] Blood monocytes/100 leukocyt esOrdered By: Dr. Awad on 04-18-2022 Monocytes/100 WBC (Bld) 9.0 % 0-10 [facility] Blood platelet mean volumeOr dered By: Dr. Awda on 04-18-2022 Platelet mean volume (Bld) [Entitic vol] 9.6 fL 6.2-12.0 [facility] CBC W/Diff, Automatedon Absolute Lymph 1.82 X10 3/uL Normal 0.83-4.51 [facility] Comment on above: Performed By: #### L 506.1000, L501.9520, L3890.6005, L500.4050, L3000.0375, L100.0100 #### [facility] [address] [place], [address] Absolute Neut 3.5 X10 3/uL Normal 2.0-7.7 [facility] Comment on above: Performed By: #### L 506.1000, L501.9520, L3890.6005, L500.4050, L3000.0375, L100.0100 #### [facility] [address] [place], [address] Basophils/100 WBC (Bld) 1.1 % High 0-1 [facility] Comment on above: Performed By: #### L 506.1000, L501.9520, L3890.6005, L500.4050, L3000.0375, L100.0100 #### [facility] [address] [place], [address] Eosinophils/100 WBC (Bld) 4.3 % Normal 0-5 [facility] Comment on above: Performed By: #### L 506.1000, L501.9520, L3890.6005, L500.4050, L3000.0375, L100.0100 #### [facility] [address] [place], [address] Erythrocyte distribution width (RBC) [Ratio] 12.9 % Normal 11.6-14.6 [facility] Comment on above: Performed By: #### L 506.1000, L501.9520, L3890.6005, L500.4050, L3000.0375, L100.0100 #### [facility] [address] [place], [address] Hematocrit (Bld) [Volume fraction] 47.0 % Normal 40-54 [facility] Comment on above: Performed By: #### L 506.1000, L501.9520, L3890.6005, L500.4050, L3000.0375, L100.0100 #### [facility] [address] [place], [address] Hemoglobin (Bld) [Mass/Vol] 15.3 g/dL Normal 13.0-16.5 [facility] Comment on above: Performed By: #### L 506.1000, L501.9520, L3890.6005, L500.4050, L3000.0375, L100.0100 #### [facility] [address] [place], [address] IG% 0.500 Normal 0.0-0.9 [facility] Comment on above: Result Comment: IG% - Immature Granulocytes (promyelocytes, myelocytes and metamyelocytes) > 1% indicates that a LEFT SHIFT is Present. Performed By: #### L 506.1000, L501.9520, L3890.6005, L500.4050, L3000.0375, L100.0100 #### [facility] [address] [place], [address] Lymphocytes/100 WBC (Bld) 29.1 % Normal 19-41 [facility] Comment on above: Performed By: #### L 506.1000, L501.9520, L3890.6005, L500.4050, L3000.0375, L100.0100 #### [facility] [address] [place], [address] MCH (RBC) [Entitic mass] 29.7 pg Normal 27.0-32.0 [facility] Comment on above: Performed By: #### L 506.1000, L501.9520, L3890.6005, L500.4050, L3000.0375, L100.0100 #### [facility] [address] [place], [address] MCHC (RBC) [Mass/Vol] 32.6 g/dL Normal 32-36 [facility] Comment on above: Performed By: #### L 506.1000, L501.9520, L3890.6005, L500.4050, L3000.0375, L100.0100 #### [facility] [address] [place], [address] MCV (RBC) [Entitic vol] 91.1 fL Normal 80-94 [facility] Comment on above: Performed By: #### L 506.1000, L501.9520, L3890.6005, L500.4050, L3000.0375, L100.0100 #### [facility] [address] [place], [address] Monocytes/100 WBC (Bld) 9.0 % Normal 0-10 [facility] Comment on above: Performed By: #### L 506.1000, L501.9520, L3890.6005, L500.4050, L3000.0375, L100.0100 #### [facility] [address] [place], [address] Neutrophils/100 WBC (Bld) 56.0 % Normal 47-70 [facility] Comment on above: Performed By: #### L 506.1000, L501.9520, L3890.6005, L500.4050, L3000.0375, L100.0100 #### [facility] [address] [place], [address] Nucleated RBC (Bld) [#/Vol] 0 10*3/uL Normal 0-5 [facility] Comment on above: Performed By: #### L 506.1000, L501.9520, L3890.6005, L500.4050, L3000.0375, L100.0100 #### [facility] [address] [place], [address] Platelet mean volume (Bld) [Entitic vol] 9.6 fL Normal 6.2-12.0 [facility] Comment on above: Performed By: #### L 506.1000, L501.9520, L3890.6005, L500.4050, L3000.0375, L100.0100 #### [facility] [address] [place], [address] Platelets (Bld) [#/Vol] 280 10*3/uL Normal 150-450 [facility] Comment on above: Performed By: #### L 506.1000, L501.9520, L3890.6005, L500.4050, L3000.0375, L100.0100 #### [facility] [address] [place], [address] RBC (Bld) [#/Vol] 5.16 10*6/uL Normal 4.6-6.2 [facility] Comment on above: Performed By: #### L 506.1000, L501.9520, L3890.6005, L500.4050, L3000.0375, L100.0100 #### [facility] [address] [place], [address] RDW SD 42.7 fl Normal 35.1-43.9 [facility] Comment on above: Performed By: #### L 506.1000, L501.9520, L3890.6005, L500.4050, L3000.0375, L100.0100 #### [facility] [address] [place], [address] WBC (Bld) [#/Vol] 6.3 10*3/uL Normal 4.4-11.0 [facility] Comment on above: Performed By: #### L 506.1000, L501.9520, L3890.6005, L500.4050, L3000.0375, L100.0100 #### [facility] [address] [place], [address] Comprehensive Metabolic Prof tnon 04-18-2022 Albumin [Mass/Vol] 3.9 g/dL Normal 3.2-5.0 [facility] Comment on above: Performed By: #### L 506.1000, L501.9520, L3890.6005, L500.4050, L3000.0375, L100.0100 #### [facility] [address] [place], [address] Albumin/Globulin [Mass ratio] 1.1 {ratio} Normal 0.9-2.4 [facility] Comment on above: Performed By: #### L 506.1000, L501.9520, L3890.6005, L500.4050, L3000.0375, L100.0100 #### [facility] [address] [place], [address] ALK P 76 U/L Normal 45-117 [facility] Comment on above: Performed By: #### L 506.1000, L501.9520, L3890.6005, L500.4050, L3000.0375, L100.0100 #### [facility] [address] [place], [address] ALT [Catalytic activity/Vol] 49 U/L Normal 16-61 [facility] Comment on above: Performed By: #### L 506.1000, L501.9520, L3890.6005, L500.4050, L3000.0375, L100.0100 #### [facility] [address] [place], [address] AST [Catalytic activity/Vol] 24 U/L Normal 15-37 [facility] Comment on above: Performed By: #### L 506.1000, L501.9520, L3890.6005, L500.4050, L3000.0375, L100.0100 #### [facility] [address] [place], [address] Bilirubin [Mass/Vol] 1.00 mg/dL Normal 0.20-1.00 [facility] Comment on above: Result Comment: For patients on eltrombopag therapy, use of Dimension Irene TBIL is not recommended. Performed By: #### L 506.1000, L501.9520, L3890.6005, L500.4050, L3000.0375, L100.0100 #### [facility] [address] [place], [address] BUN/CRE 16.0 RATIO Normal 10-20 [facility] Comment on above: Performed By: #### L 506.1000, L501.9520, L3890.6005, L500.4050, L3000.0375, L100.0100 #### [facility] [address] [place], [address] CA,Total 9.0 mg/dL Normal 8.5-10.1 [facility] Comment on above: Performed By: #### L 506.1000, L501.9520, L3890.6005, L500.4050, L3000.0375, L100.0100 #### [facility] [address] [place], [address] Chloride [Moles/Vol] 105 mmol/L Normal 98-107 [facility] Comment on above: Performed By: #### L 506.1000, L501.9520, L3890.6005, L500.4050, L3000.0375, L100.0100 #### [facility] [address] [place], [address] CO2 [Moles/Vol] 29.0 mmol/L Normal 21.0-32.0 [facility] Comment on above: Performed By: #### L 506.1000, L501.9520, L3890.6005, L500.4050, L3000.0375, L100.0100 #### [facility] [address] [place], [address] Creatinine [Mass/Vol] 0.94 mg/dL Normal 0.70-1.30 [facility] Comment on above: Result Comment: The validity of the calculated GFR GFRAA in patients over 70 years has not been determined. Clinical correlation is essential. Performed By: #### L 506.1000, L501.9520, L3890.6005, L500.4050, L3000.0375, L100.0100 #### [facility] [address] [place], [address] EST GFR - AA 125 mL/min Normal >60 [facility] Comment on above: Result Comment: Afri can Faroese GFR Calc Performed By: #### L 506.1000, L501.9520, L3890.6005, L500.4050, L3000.0375, L100.0100 #### [facility] [address] [place], [place], [address] (739 GAP 8 Normal 5-15 [facility] Comment on above: Performed By: #### L 506.1000, L501.9520, L3890.6005, L500.4050, L3000.0375, L100.0100 #### [facility] [address] [place], [address] GFR/1.73 sq M.predicted among non-blacks MDRD (S/P/Bld) [Vol rate/Area] 103 mL/min/{1.73_m2} Normal >60 [facility] Comment on above: Result Comment: Non- GFR Calc Performed By: #### L 506.1000, L501.9520, L3890.6005, L500.4050, L3000.0375, L100.0100 #### [facility] [address] [place], [address] Globulin (S) [Mass/Vol] 3.5 g/dL Normal 2.2-4.2 [facility] Comment on above: Performed By: #### L 506.1000, L501.9520, L3890.6005, L500.4050, L3000.0375, L100.0100 #### [facility] [address] [place], [address] Glucose [Mass/Vol] 105 mg/dL Normal 74-106 [facility] Comment on above: Result Comment: Fast ing Glucose result from 100 to 125 mg/dL suggests IMPAIRED HOMEOSTASIS per A.D.A. criteria. Performed By: #### L 506.1000, L501.9520, L3890.6005, L500.4050, L3000.0375, L100.0100 #### [facility] [address] [place], [address] Potassium [Moles/Vol] 4.0 mmol/L Normal 3.5-5.1 [facility] Comment on above: Performed By: #### L 506.1000, L501.9520, L3890.6005, L500.4050, L3000.0375, L100.0100 #### [facility] [address] [place], [address] Sodium [Moles/Vol] 142 mmol/L Normal 136-145 [facility] Comment on above: Performed By: #### L 506.1000, L501.9520, L3890.6005, L500.4050, L3000.0375, L100.0100 #### [facility] [address] [place], [address] T PROT 7.4 g/dL Normal 6.4-8.2 [facility] Comment on above: Performed By: #### L 506.1000, L501.9520, L3890.6005, L500.4050, L3000.0375, L100.0100 #### [facility] [address] [place], [address] Urea nitrogen [Mass/Vol] 15 mg/dL Normal 7-18 [facility] Comment on above: Performed By: #### L 506.1000, L501.9520, L3890.6005, L500.4050, L3000.0375, L100.0100 #### [facility] [address] [place], [place], [address] Determination of erythrocyte mean corpuscular volume (MCV)Ordered By: Dr. Awad on 04-18-2022 MCV (RBC) [Entitic vol] 91.1 fL 80-94 [facility] HIV - WCHon 04-18-2022 HIV Non-Reactive Normal Nonreactive [facility] Comment on above: Performed By: #### L 506.1000, L501.9520, L3890.6005, L500.4050, L3000.0375, L100.0100 ####[facility] [address] [facility] [place], [id number] HIV 1 and HIV-2 antibody ass ay with HIV-1 p24 antigen detectionOrdered By: Dr. Awad on 04-18-2022 HIV 1+2 Ab+HIV1 p24 Ag IA Ql Non-Reactive Nonreactive [facility] Hematocrit Auto (Bld) [Volum e fraction]Ordered By: Dr. Awad on 04-18-2022 Hematocrit (Bld) [Volume fraction] 47.0 % 40-54 [facility] Laboratory - Chemistry and C hemistry - challengeOrdered By: Dr. Awad on 04-18-2022 ALP [Catalytic activity/Vol] 76 U/L 45-117 [facility] ALT [Catalytic activity/Vol] 49 U/L 16-61 [facility] CO2 [Moles/Vol] 29.0 mmol/L 21.0-32.0 [facility] Globulin (S) [Mass/Vol] 3.5 g/dL 2.2-4.2 [facility] Urea nitrogen/Creatinine [Mass ratio] 16.0 mg/mg 10-20 [facility] - Hematology and Cell countsOrdered By: Dr. Awad on 04-18-2022 Erythrocyte distribution width (RBC) [Entitic vol] 42.7 fL 35.1-43.9 [facility] Erythrocyte distribution width (RBC) [Ratio] 12.9 % 11.6-14.6 [facility] Immature granulocytes/100 WBC (Bld) 0.500 % 0.0-0.9 [facility] Comment on above: IG% - Immature Granu locytes (promyelocytes, myelocytes and metamyelocytes) > 1% indicates that a LEFT SHIFT is Present. MCH (RBC) [Entitic mass] 29.7 pg 27.0-32.0 [facility] Nucleated RBC/100 WBC (Bld) [Ratio] 0 % 0-5 [facility] MCHC Auto (RBC) [Mass/Vol]Or dered By: Dr. Awad on 04-18-2022 MCHC (RBC) [Mass/Vol] 32.6 g/dL 32-36 [facility] No Panel InformationOrdered By: Dr. Awad on 04-18-2022 Estimated GFR (MDRD) Amer 125 mL/min >60 [facility] Comment on above: GFR Calc Estimated GFR (MDRD) Non-Af Amer 103 mL/min >60 [facility] Comment on above: Non- GFR Calc Hepatitis A IgM Antibody Negative Negative [facility] Hepatitis B Core IgM Antibody Negative Negative [facility] Hepatitis C Antibody (EIA) <0.1 s/co ratio 0.0-0.9 [facility] Hepatitis C Antibody Comment Comment . [facility] Comment on above: NegativeNot infected with HCV, unless recent infection issuspected or other evidence exists to indicate HCVinfection.Performed at: - [address] [id number] Director: Tima Rubi PhD, Phone: [phone] Thyroid Stimulating Hormone (TSH) 1.87 uIU/mL 0.358-3.74 [facility] Vitamin D 25-Hydroxy 18.6 ng/mL [facility] Comment on above: Vitamin D 25(OH) Sta tus Range Deficiency <20 ng/mL (50nmol/L) Insufficiency 20 - 30 ng/mL (50 - 75 nmol/L) Sufficiency 30 - 100 ng/mL (75 - 250 nmol/L) Toxicity >100 ng/mL (>250 nmol/L) Platelets bldOrdered By: Dr. Awad on 04-18-2022 Platelets (Bld) [#/Vol] 280 10*3/uL 150-450 [facility] Serum or plasma albumin juan francisco urement (mass/volume)Ordered By: Dr. Awad on 04-18-2022 Albumin [Mass/Vol] 3.9 g/dL 3.2-5.0 [facility] Serum or plasma albumin/glob ulin mass ratioOrdered By: Dr. Awad on 04-18-2022 Albumin/Globulin [Mass ratio] 1.1 {ratio} 0.9-2.4 [facility] Serum or plasma calcium juan francisco urement (mass/volume)Ordered By: Dr. Awad on 04-18-2022 Calcium [Mass/Vol] 9.0 mg/dL 8.5-10.1 [facility] Serum or plasma creatinine m easurement (mass/volume)Ordered By: Dr. Awad on 04-18-2022 Creatinine [Mass/Vol] 0.94 mg/dL 0.70-1.30 [facility] Comment on above: The validity of the calculated GFR & GFRAA in patients over 70 years has not been determined. Clinical correlation is essential. Serum or plasma hepatitis B virus surface antigen detection by immunoassayOrdered By: Dr. Awad on 04-18-2022 HBV surface Ag IA Ql Negative Negative [facility] Serum or plasma urea nitroge n measurement (mass/volume)Ordered By: Dr. Awad on 04-18-2022 Urea nitrogen [Mass/Vol] 15 mg/dL 7-18 [facility] Thin prep Papanicolaou smear with manual screeningOrdered By: Dr. Awad on 04-18-2022 Thin prep Papanicolaou smear with manual screening 24 U/L 15-37 [facility] Thin prep Papanicolaou smear with manual screening 8 5-15 [facility] Thyroid Stim Hormone (TSH)on 04-18-2022 TSH 1.87 uIU/mL Normal 0.358-3.74 [facility] Comment on above: Performed By: #### L 506.1000, L501.9520, L3890.6005, L500.4050, L3000.0375, L100.0100 #### [facility] [address] [place], [id number] Vitamin D,25 Hydroxyon 04-18 Vitamin D 25-OH 18.6 ng/mL Normal [facility] Comment on above: Result Comment: Claudine min D 25(OH) Status Range Deficiency <20 ng/mL (50nmol/L) Insufficiency 20 - 30 ng/mL (50 - 75 nmol/L) Sufficiency 30 - 100 ng/mL (75 - 250 nmol/L) Toxicity >100 ng/mL (>250 nmol/L) Performed By: #### L 506.1000, L501.9520, L3890.6005, L500.4050, L3000.0375, L100.0100 ####[facility] [address] [place], [id number] Internal Medicine Office Vis iton 04-17-2022 Internal Medicine Office Visit [facility] [address] [place], [place] [address] OFFICE VISIT Date of Service: 04/18/22 MR#: [id number] Acct: [id number] Name: STEPHANIA ORO Rep #: [id number] : 1995 Provider: Dr. Roula balbuena MD Age/Sex: 26/M Location: [facility] Status: Signed Intake Vital Signs 01/22/22 13:07 04/18/22 08:39 Height 5 ft 10 in 5 ft 10 in Weight: 200 lb 236 lb BMI 28.7 33.8 BP 138/95 H 118/80 Blood Pressure Location Lt brachial Position Sitting Respiration 18 16 Pulse 102 H 94 Pulse Source Monitor Temp 98 F 97.0 F L Temp Source Temporal Temporal Pulse Oximetry (%) 100 97 Oxygen Delivery Method room air Intake Visit Reasons: CHIEF ENTERPRISE ARCHITECT EST CARE Chief Complaint: CHIEF ENTERPRISE ARCHITECT EST CARE Is patient in pain?: Yes (BACK PAIN) Pain scale (1-10): 6 Allergies No Known Allergies Allergy (Verified 04/18/22 08:40) Medications quetiapine 50 mg tablet 50 mg PO DAILY 04/10/22 [History Confirmed 04/18/22] trazodone 100 mg tablet 100 mg PO DAILY 04/10/22 [History Confirmed 04/18/22] PFSH Medical History (Updated 04/18/22 @ 09:[address] Roula Awad MD) Asthma Depression Headache, migraine History of drug abuse History of fracture Surgical History History of appendectomy Family History (Updated 04/18/22 @ 08:[address] Roula Awad MD) Father Asthma Diabetes Sister Asthma Grandmother Cancer lung Grandfather Cancer lung Diabetes Social History (Updated 04/18/22 @ 08:[address] Roula Awad MD) household members: other details: LIVES AT [facility] current occupational status: unemployed sexually active: No do you think of yourself as: straight/heterosexual Smoking Status: Current some day smoker tobacco type: cigarettes Smokeless tobacco user: chewing tobacco, snuff and snus Electronic Cigarette Use: with nicotine alcohol intake: former substance use type: former substance user Date of last use: 02/2022, marijuana and methamphetamine what type of physical activity do you participate in: none seatbelt use: always do you feel safe at home: Yes HPI HPI Chief Complaint: CHIEF ENTERPRISE ARCHITECT EST CARE Details: STEPHANIA ORO, is a 26 M who presents to the office today to establish care. He was seeing Dr. Franklin, but hasn't seen him in several years. He is due for some routine blood work. He isn't due for any screening and doesn't want any immunizations. The patient does smoke some and isn't ready to stop yet. He doesn't need any refills today. He reports he is not eating healthy and isn't very active at all. The patient has a history of drug abuse. 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 He reports he usually smoked it, but did inject once when he last used. He has never been checked for hepatitis or HIV since he last used. He follows with the [facility] treatment program and reports he is doing well. He has a strong support system and denies any current cravings. The patient has a history of depression and anxiety. He reports he has had problems with it since high school. He does think the seroquel helps, but isn't sure if the trazodone helps much. He denies any current concerns about depression or anxiety. He does follow a counselor through the treatment program. He doesn't see a psychiatrist, however. He denies any thoughts of suicide. The patient has concerns about his back. He reports he was told he had some vertebrae that were 'fusing together' years ago. He was referred to a chiropractor who gave him an adjustment which helped. He is requesting a referral to a chiropractor to have them assess it. He has had problems with his back for around 5 years. He reports he did not have any specific injuries. He reports it is his mid-back, intermittent. He states no specific aggravating factors. He hasn't been taking or doing anything for it. He denies any pain currently. He reports when it does come on, it feels like a burning sensation, rating it 7/10 at its worst. He denies any numbness/tingling down his legs, leg weakness, bowel or bladder incontinence. He also reports he thinks he has a pinched nerve in his upper back/shoulder which has been going on since high school. Similarly to his lower back, he will get a burning sensation. He states it is also intermittent, but when it comes on, will last for weeks when it flares up. He does report pain in that area today. He rates it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 [facility] [place] [address] [place] [address] Lymphocytosis # CHIEF ENTERPRISE ARCHITECT Normal [facility] Comment on above: Performed By: #### C BC #### [facility] [place] [address] [place] [address] Lymphocytosis % CHIEF ENTERPRISE ARCHITECT Normal [facility] Comment on above: Performed By: #### C BC #### [facility] [place] [address] [place] [address] Macrocytosis CHIEF ENTERPRISE ARCHITECT Normal [facility] Comment on above: Performed By: #### C BC #### [facility] [place] [address] [place] [address] MCH (RBC) [Entitic mass] 30.3 pg Normal 27.0-31.0 [facility] Comment on above: Performed By: #### C BC #### [facility] [place] [address] [facility] [place] [address] MCHC (RBC) [Mass/Vol] 34.5 g/dL Normal 33.0-37.0 [facility] Comment on above: Performed By: #### C BC #### [facility] [place] [address] [facility] [place] [address] MCV (RBC) [Entitic vol] 88.0 fL Normal 80.0-94.0 [facility] Comment on above: Performed By: #### C BC #### [facility] [address] [facility] [place] [address] Microcytosis CHIEF ENTERPRISE ARCHITECT Normal [facility] Comment on above: Performed By: #### C BC #### [facility] [address] [facility] [place] [address] Monocytes (Bld) [#/Vol] 0.5 10*3/uL Normal 0.3-0.8 [facility] Comment on above: Performed By: #### C BC #### [facility] [place] [address] [facility] [place] [address] Monocytes/100 WBC (Bld) 7.3 % Normal 5.5-11.7 [facility] Comment on above: Performed By: #### C BC #### [facility] [place] [address] [facility] [place] [address] Monocytosis % CHIEF ENTERPRISE ARCHITECT Normal [facility] Comment on above: Performed By: #### C BC #### [facility] [place] [address] [facility] [place] [address] Neutropenia # CHIEF ENTERPRISE ARCHITECT Normal [facility] Comment on above: Performed By: #### C BC #### [facility] [place] [address] [place] [address] Neutropenia % CHIEF ENTERPRISE ARCHITECT Normal [facility] Comment on above: Performed By: #### C BC #### [facility] [place] [address] [place] [address] Neutrophils (Bld) [#/Vol] CHIEF ENTERPRISE ARCHITECT Normal [facility] Comment on above: Performed By: #### C BC #### [facility] [place] [address] [place] [address] Neutrophils Abs. # 4.2 K/uL Normal 2.2-4.8 [facility] Comment on above: Performed By: #### C BC #### [facility] [place] [address] [place] [address] Neutrophils/100 WBC (Bld) 62.9 % Normal 43.0-65.0 [facility] Comment on above: Performed By: #### C BC #### [facility] [place] [address] [place] [address] Neutrophils/100 WBC (Bld) CHIEF ENTERPRISE ARCHITECT Normal [facility] Comment on above: Performed By: #### C BC #### [facility] [place] [address] [place] [address] Nucleated RBC (Bld) [#/Vol] 0.0 10*3/uL Normal [facility] Comment on above: Performed By: #### C BC #### [facility] [place] [address] [place] [address] Nucleated RBC/100 WBC (Bld) [Ratio] 0.0 % Normal [facility] Comment on above: Performed By: #### C BC #### [facility] [place] [address] [place] [address] Pancytopenia CHIEF ENTERPRISE ARCHITECT Normal [facility] Comment on above: Performed By: #### C BC #### [facility] [place] [address] [place] [address] Platelet mean volume (Bld) [Entitic vol] 7.7 fL Normal 7.4-10.4 [facility] Comment on above: Performed By: #### C BC #### [facility] [place] [address] [facility] [place] [address] Platelets (Bld) [#/Vol] 262 10*3/uL Normal 148-402 [facility] Comment on above: Performed By: #### C BC #### [facility] [place] [address] [place] [address] Poikilocytosis CHIEF ENTERPRISE ARCHITECT Normal [facility] Comment on above: Performed By: #### C BC #### [facility] [place] [address] [facility] [place] [address] RBC (Bld) [#/Vol] 5.08 10*6/uL Normal 4.13-5.69 [facility] Comment on above: Performed By: #### C BC #### [facility] [place] [address] [place] [address] Small Platelets CHIEF ENTERPRISE ARCHITECT Normal [facility] Comment on above: Performed By: #### C BC #### [facility] [place] [address] [place] [address] Thrombocytopenia CHIEF ENTERPRISE ARCHITECT Normal [facility] Comment on above: Performed By: #### C BC #### [facility] [place] [address] [facility] [place] [address] Thrombocytopenia. CHIEF ENTERPRISE ARCHITECT Normal [facility] Comment on above: Performed By: #### C BC #### [facility] [place] [address] [place] [address] Thrombocytosis CHIEF ENTERPRISE ARCHITECT Normal [facility] Comment on above: Performed By: #### C BC #### [facility] [address] [place] [address] WBC (Bld) [#/Vol] 6.7 10*3/uL Normal 3.6-10.8 [facility] Comment on above: Performed By: #### C BC #### [facility] [address] [place] [address] Comprehensive Metabolic Pane joaquim 03-15-2019 Albumin [Mass/Vol] 4.0 g/dL Normal 3.4-5.0 [facility] Comment on above: Performed By: #### C MP #### [facility] [address] [place] [address] Albumin/Globulin [Mass ratio] 1.3 {ratio} Normal 1.1-2.5 [facility] Comment on above: Performed By: #### C MP #### [facility] [address] [place] [address] ALP [Catalytic activity/Vol] 63 U/L Normal 54-112 [facility] Comment on above: Performed By: #### C MP #### [facility] [address] [place] [address] ALT [Catalytic activity/Vol] 23 U/L Normal 13-66 [facility] Comment on above: Performed By: #### C MP #### [facility] [address] [place] [address] Anion gap [Moles/Vol] 11.5 mmol/L Normal 8.0-16.0 [facility] Comment on above: Performed By: #### C MP #### [facility] [address] [place] [address] AST [Catalytic activity/Vol] 13 U/L Normal 3-39 [facility] Comment on above: Performed By: #### C MP #### [facility] [address] [place] [address] Bilirubin Ql (U) 1.44 mg/dL High 0.00-0.99 [facility] Comment on above: Performed By: #### C MP #### [facility] [address] [place] [address] Calcium [Mass/Vol] 8.3 mg/dL Normal 8.2-10.0 [facility] Comment on above: Performed By: #### C MP #### [facility] [address] [place] [address] Chloride [Moles/Vol] 105 mmol/L Normal 94-110 [facility] Comment on above: Performed By: #### C MP #### [facility] [address] [place] [address] CO2 [Moles/Vol] 29 mmol/L Normal 21-34 [facility] Comment on above: Performed By: #### C MP #### [facility] [address] [place] [address] Creatinine [Mass/Vol] 0.86 mg/dL Normal 0.50-1.17 [facility] Comment on above: Performed By: #### C MP #### [facility] [address] [place] [address] GFR/1.73 sq M predicted among blacks MDRD (S/P/Bld) [Vol rate/Area] mL/min/{1.73_m2} Normal >60 [facility] Comment on above: Result Comment: Double Bottom Driver cora Kidney Disease less than 60 mL/min/1.73 m2 Kidney Failure less than 15 mL/min/1.73 m2 Average estimated GFR by age: 20-29 years 116 mL/min/1.73 m2 Performed By: #### C MP #### [facility] [address] [place] [address] GFR/1.73 sq M predicted among non-blacks MDRD (S/P/Bld) [Vol rate/Area] mL/min/{1.73_m2} Normal >60 [facility] Comment on above: Performed By: #### C MP #### [facility] [address] [place] [address] Globulin (S) [Mass/Vol] 3.1 g/dL Normal 1.5-4.5 [facility] Comment on above: Performed By: #### C MP #### [facility] [address] [place] [address] Glucose [Mass/Vol] 101 mg/dL High 65-100 [facility] Comment on above: Performed By: #### C MP #### [facility] [address] [place] [address] Potassium [Moles/Vol] 3.5 mmol/L Normal 3.3-5.1 [facility] Comment on above: Performed By: #### C MP #### [facility] [address] [place] [address] Protein [Mass/Vol] 7.1 g/dL Normal 6.1-8.2 [facility] Comment on above: Performed By: #### C MP #### [facility] [address] [place] [address] Sodium [Moles/Vol] 142 mmol/L Normal 132-145 [facility] Comment on above: Performed By: #### C MP #### [place] [address] [place] [address] Urea nitrogen [Mass/Vol] 13.4 mg/dL Normal 3.2-26.9 [facility] Comment on above: Performed By: #### C MP #### [facility] [address] [place], [place] [id number] Urea nitrogen/Creatinine [Mass ratio] 16 mg/mg Normal 6-20 [facility] Comment on above: Performed By: #### C MP #### [address] [address] EMERGENCY DEPARTMENTon 03-15 [place]ER[place]ENCY [place] [address] HEALTH INFORMATION MANAGEMENT EMERGENCY DEPARTMENT : [id number] Signed Patient: STEPHANIA ORO Acct:[id number] MRUN : [id number] : 1995 Sex: M Loc: ED ADM Date: Room/Bed: DISC Date: History of Present Illness - General Chief complaint: Evaluation Stated complaint: EVALUATION Time Seen by Provider: 03/15/19 02:32 Nurses Notes Reviewed and Agreed With?: Yes Source: Patient, Police - History of Present Illness Initial comments: Patient presents with suicidal thoughts. According to police, they were called because the patient took some medication and a kitchen knife and left the house and told people there that he was quite hurt himself. When they pulled him over in his car, they did see the knife and the pills. Patient states he did get into an argument with his child's mother. He stated that he took the medications so she would not hurt herself. He states he has never tried to hurt himself in the past. He has never had any psychiatric admissions. He does not see a counselor as an outpatient. he is on no me dications on home. he is denying any si at this time - Related Data Allergies Allergy/AdvReac Type Severity Reaction Status Date / Time No Known Allergies Allergy Unverified 03/15/19 03:42 Review of System - Constitutional Constitutional: Present: Well developed, Well nourished, Non-toxic - Nose,Throat,Mouth Nose (ROS): Absent: pain Throat: Absent: pain, swelling, discharge Mouth: Absent: pain, swelling - Respiratory Respiratory: Absent: cough, short of breath, wheezing - CV Cardiology: Absent: chest pain, edema - GI Gastrointestinal/Abdo sintia: Absent: abdominal pain, diarrhea, nausea, vomiting - Genitourinary Symptoms: Absent: dysuria - Neuro Neurological: Absent: headache, weakness - Muskuloskeletal Musculoskeletal: Absent: back pain, joint pain, joint swelling - Integumentary Skin: Absent: lesions, rash - Allergic/Immunologic Immunological/Allergi c: Present: no symptoms reported - Hematologic Hematologic/Lymphatic : Absent: easy bleeding, easy bruising, swollen glands - Endocrine Endocrine: Present: no symptoms reported - Psychiatric Psychiatric: Present: SEE HPI - All Others/Exceptions All Other Systems: Reviewed and Negative Except Where Noted in Documentation General Exam - General Limitations: Complains of: no limitations Constitutional: Present: Well developed, Well nourished, well hydrated, Non-toxic - Head Head exam: Present: atraumatic, normocephalic, normal inspection - Eye Eye exam: Present: normal apperance, normal accomodation, EOMI Pupils: Present: PERRL - ENT ENT exam: Present: normal orophraynx, mucous membranes moist, No Nasal Discharge, normal external ear exam, Posterior Pharynx Non-erethemetous - Respiratory Respiratory exam: Present: lungs clear and equal bilaterally. Absent: respiratory distress, wh eezes, rales, rhonchi, accessory muscle use - Cardiovascular Cardiovascular Exam: Present: regular rate, normal rhythm, normal heart sounds. Absent: murmur, rub s, gallop, clicks - GI/Abdominal GI/Abdominal exam: Present: soft, non tender, normal bowel sounds. Absent: guarding, rebound, rigid, mass, bruit - Extremities Exam Extremities exam: Present: normal inspection, full ROM, neurovascularly intact - Back Exam Back exam: Present: normal inspection, full ROM. Absent: tenderness - Neurological Exam Neurological exam: Present: alert, oriented X3, CN II-XII intact - Psychiatric Psychiatric exam: Present: suicidal ideation. Absent: anxious, manic, homicidal ideation - Vital Signs Vital Signs 03/15/19 02:27 Temperature 98.1 F Pulse Rate [ 92 Pulse Ox] Respiratory 18 Rate Blood Pressure 144/76 [Left Arm] O2 Sat by Pulse 99 Oximetry(%) Medical Desicion Making - Lab Data Result diagrams: 03/15/19 03:11 03/15/19 03:11 Lab Results 03/15/19 03/15/19 03/15/19 Range/Units 03:00 03:11 03:11 WBC 6.7 (3.6-10.8) K/uL RBC 5.08 (4.13-5.69) M/uL Hgb 15.4 (12.4-17.3) g/dL Hct 44.7 (36.7-50.6) % MCV 88.0 (80.0-94.0) fL MCH 30.3 (27.0-31.0) pg MCHC 34.5 (33.0-37.0) g/dL RDW 12.8 (11.5-14.5) % Plt Count 262 (148-402) K/uL MPV 7.7 (7.4-10.4) fL Neut % (Auto) 62.9 (43.0-65.0) % Lymph % (Auto) 26.7 (17.0-45.5) % Kay % (Auto) 7.3 (5.5-11.7) % Eos % (Auto) 2.8 (0.9-2.9) % Baso % (Auto) 0.3 (0.2-1.0) % Absolute Neuts (auto) 4.2 (2.2-4.8) K/uL Absolute Lymphs (auto) 1.8 (1.3-2.9) K/uL Absolute Monos (auto) 0.5 (0.3-0.8) K/uL Absolute Eos (auto) 0.2 (0.0-0.2) K/uL Absolute Basos (auto) 0 (0.0-0.1) K/uL Nucleated RBC % 0 % Nucleated RBCs # 0 K/uL Sodium 142 (132-145) mmol/L Potassium 3.5 (3.3-5.1) mmol/L Chloride 105 (94-110) mmol/L Total Carbon Dioxide 29 (21-34) mmol/L Anion Gap 11.5 (8.0-16.0) mmol/L BUN 13.4 (3.2-26.9) mg/dL Creatinine 0.86 (0.50-1.17) mg/dL Est GFR (MDRD) Af Amer > 60 (>60) Est GFR (MDRD) Non-Af > 60 (>60) BUN/Creatinine Ratio 16 (6-20) Glucose 101 H (65-100) mg/dL Specific Gilbert 1.025 (1.015-1.025) Calcium 8.3 (8.2-10.0) mg/dL Total Bilirubin 1.44 H (0.00-0.99) mg/dL AST 13 (3-39) U/L ALT 23 (13-66) U/L Alkaline Phosphatase 63 (54-112) U/L Total Protein 7.1 (6.1-8.2) g/dL Albumin 4.0 (3.4-5.0) g/dL Globulin 3.1 (1.5-4.5) g/dL Albumin/Globulin Ratio 1.3 (1.1-2.5) Urine pH 6.0 (5.0-8.0) Salicylates < 2.8 (2.8-20.0) mg/dL Opiates Screen Negative ng/mL Acetaminophen < 2.0 L (10.0-30.0) ug/mL Ur Barbiturates Screen Negative ng/mL Phencyclidine Screen Negative ng/mL Amphetamines Screen Positive A ng/mL Benzodiazepines Screen Negative ng/mL Cocaine Screen Negative ng/mL Marijuana (THC) Screen Positive A ng/mL Ur Drug Screen Comment - Ethyl Alcohol < 3.0 (0.0-0.0) mg/dL Orders: Labs 03/15/19 03:00 Urine Drug Screening [CHM] Stat 03/15/19 03:11 Acetaminophen Level [CHM] Stat CBC w/Auto Differential [HEM] Stat Comprehensive Metabolic Panel [CHM] Stat Ethanol (Medical) [CHM] Stat Salicylate Level [CHM] Stat - Medical Decision Making Screening labs are negative. Tox reveals amphetamines and marijuana. Alcohol negative. Patient is not acutely intoxicated or under the influence of any drugs for my examination. I did have all well, and examined the patient. He continues to be cooperative and denies any SI at this time. After their examination they feel he can be discharged with a safety plan. I feel that that is appropriate given his situation. He is not going back with the child's mother tonight or tomorrow as he states he is moving out. Patient will be discharged to follow-up as per all well instructions ED Discharge Summary - Discharge Data Clinical Impression: Suicidal thoughts Condition: Good Disposition: 01 HOME, SELF-CARE Referrals: VASYL MELENDEZ DO [Primary Care Provider] - Time Seen by Provider: 03/15/19 02:32 - Dictation Amendments/Documentat ion: [employer] Document Only Electronically Generated By: LUIZ FARIA MD Generated Date/Time: 03/15/19 4731 Electronically Signed By: LUIZ FARIA MD Signed Date/Time 03/15/19 6810 Co Signed Electronically By: Co Signed Date/Time: CC: VASYL MELENDEZ DO Normal [facility] Ethanol (Medical)on 03-15-20 Ethanol [Mass/Vol] mg/dL Normal 0.0-0.0 [facility] Comment on above: Performed By: #### A LC #### [facility] [address] [place], [place] [id number] Salic Level W/ doseon 2018 Salicylate <2.8 Normal 2.8-20.0 [facility] Comment on above: Performed By: #### S ALIC #### [facility] [address] [place] [address] Urine Drug Screeningon 03-15 Amphetamines Ql (U) Positive Abnormal [facility] Comment on above: Order Comment: Drug Screen Comment CHIEF ENTERPRISE ARCHITECT Result Comment: cuto ff 1000 ng/mL Performed By: #### D RUGR #### [facility] [place] [address] [place] [address] Barbiturates Negative Normal [facility] Comment on above: Order Comment: Drug Screen Comment CHIEF ENTERPRISE ARCHITECT Result Comment: cuto ff 200 ng/mL Performed By: #### D RUGR #### [facility] [place] [address] [place] [address] Benzodiazepines Ql (U) Negative Normal [facility] Comment on above: Order Comment: Drug Screen Comment CHIEF ENTERPRISE ARCHITECT Result Comment: cuto ff 200 ng/mL Performed By: #### D RUGR #### [facility] [place] [address] [place] [address] Cocaine Ql (U) Negative [facility] Comment on above: Order Comment: Drug Screen Comment CHIEF ENTERPRISE ARCHITECT Result Comment: cuto ff 300 ng/mL Performed By: #### Ana RUGR #### [facility] [place] [address] [place] [address] Opiates Ql (U) Negative Normal [facility] Comment on above: Order Comment: Drug Screen Comment CHIEF ENTERPRISE ARCHITECT Result Comment: cuto ff 300 ng/mL Performed By: #### D RUGR #### [facility] [place] [address] [place] [address] pH (Bld) 6.0 Normal 5.0-8.0 [facility] Comment on above: Order Comment: Drug Screen Comment CHIEF ENTERPRISE ARCHITECT Performed By: #### D RUGR #### [facility] [place] [address] [place] [address] Phencyclidine Ql (U) Negative Normal [facility] Comment on above: Order Comment: Drug Screen Comment CHIEF ENTERPRISE ARCHITECT Result Comment: cuto ff 25 ng/mL Performed By: #### D RUGR #### [facility] [place] [address] [place] [address] Specific gravity (U) [Rel density] 1.025 Normal 1.015-1.025 [facility] Comment on above: Order Comment: Drug Screen Comment CHIEF ENTERPRISE ARCHITECT Performed By: #### D RUGR #### [facility] [address] [place] [address] THC Positive Abnormal [facility] Comment on above: Order Comment: Drug Screen Comment CHIEF ENTERPRISE ARCHITECT Result Comment: cuto ff 50 ng/mL Performed By: #### D RUGR #### [facility] [address] [place] [address] - - Normal [facility] Comment on above: Order Comment: Drug Screen Comment CHIEF ENTERPRISE ARCHITECT Result Comment: . Drug Screen Comment: This assay provides a preliminary unconfirmed analytical test result that may be suitable for the clinical management of patients in certain situations. Some anoz-api-fmaqiaq medications, as well as adulterants, may cause inaccurate results. Screen only testing does not meet the [facility] Forensic Urine Drug Testing Program requirements as a forensic urine drug test for workplace testing. . Performed By: #### D RUGR #### [facility] [address] [place] [address] Vital Signs Date Time Vital Sign Value Performing Clinician Facility 01-17-2023 15:090400 Body height 177.8 cm Landy Pereira MD Work Phone: [facility] 01-17-2023 15:09-0400 Body temperature 97.5 [degF] Landy Pereira MD Work Phone: [facility] 01-17-2023 15:09-0400 Body weight 104.15 kg Landy Pereira MD Work Phone: [facility] 01-17-2023 15:09-0400 Diastolic blood pressure 70 mm[Hg] Landy Pereira MD Work Phone: [facility] 01-17-2023 15:09-0400 Heart rate 95 /min Landy Pereira MD Work Phone: [facility] 01-17-2023 15:09-0400 SaO2% (BldA) [Mass fraction] 99 % Landy Pereira MD Work Phone: [facility] 01-17-2023 15:09-0400 Systolic blood pressure 110 mm[Hg] Landy Pereira MD Work Phone: [facility] 01-15-2023 17:10-0400 Body temperature 98.4 [degF] Saul Clark MD Work Phone: [facility] 01-15-2023 17:10-0400 Body weight 106.14 kg Saul Clark MD Work Phone: [facility] 01-15-2023 17:10-0400 Diastolic blood pressure 78 mm[Hg] Saul Clark MD Work Phone: [facility] 01-15-2023 17:10-0400 Heart rate 100 /min Saul Clark MD Work Phone: [facility] 01-15-2023 17:10-0400 Respiratory rate 21 /min Saul Clark MD Work Phone: [facility] 01-15-2023 17:10-0400 SaO2% (BldA) [Mass fraction] 96 % Saul Clark MD Work Phone: [facility] 01-15-2023 17:10-0400 Systolic blood pressure 124 mm[Hg] Saul Clark MD Work Phone: [facility] 04-27-2022 10:11-0500 Body height 177.8 cm No Primary Care Physician [facility] 04-27-2022 10:11-0500 Body mass index (BMI) [Ratio] 33.6 kg/m2 No Primary Care Physician [facility] 04-27-2022 10:11-0500 Body temperature 97.6 [degF] No Primary Care Physician [facility] 04-27-2022 10:11-0500 Body weight 106.36 kg No Primary Care Physician [facility] 04-27-2022 10:11-0500 Diastolic blood pressure 70 mm[Hg] No Primary Care Physician [facility] 04-27-2022 10:11-0500 Heart rate 100 /min No Primary Care Physician [facility] 04-27-2022 10:11-0500 Respiratory rate 16 /min No Primary Care Physician [facility] 04-27-2022 10:11-0500 SaO2% (BldA) [Mass fraction] 97 % No Primary Care Physician [facility] 04-27-2022 10:11-0500 Systolic blood pressure 126 mm[Hg] No Primary Care Physician [facility] 04-18-2022 08:39-0500 Body mass index (BMI) [Ratio] 33.8 kg/m2 No Primary Care Physician [facility] 04-18-2022 08:39-0500 Body temperature 97 [degF] No Primary Care Physician [facility] 04-18-2022 08:39-0500 Body weight 107.04 kg No Primary Care Physician [facility] 04-18-2022 08:39-0500 Diastolic blood pressure 80 mm[Hg] No Primary Care Physician [facility] 04-18-2022 08:39-0500 Heart rate 94 /min No Primary Care Physician [facility] 04-18-2022 08:39-0500 Respiratory rate 16 /min No Primary Care Physician [facility] 04-18-2022 08:39-0500 SaO2% (BldA) [Mass fraction] 97 % No Primary Care Physician [facility] 04-18-2022 08:39-0500 Systolic blood pressure 118 mm[Hg] No Primary Care Physician [facility] 01-22-2022 14:25-0500 Diastolic blood pressure 98 mm[Hg] No Primary Care Physician [facility] 01-22-2022 14:25-0500 Heart rate 78 /min No Primary Care Physician [facility] 01-22-2022 14:25-0500 Respiratory rate 18 /min No Primary Care Physician [facility] 01-22-2022 14:25-0500 SaO2% (BldA) [Mass fraction] 97 % No Primary Care Physician [facility] 01-22-2022 14:25-0500 Systolic blood pressure 141 mm[Hg] No Primary Care Physician [facility] 01-22-2022 13:07-0500 Body mass index (BMI) [Ratio] 28.7 kg/m2 No Primary Care Physician [facility] 01-22-2022 13:07-0500 Body temperature 98 [degF] No Primary Care Physician [facility] 01-22-2022 13:07-0500 Body weight 90.71 kg No Primary Care Physician [facility] 01-15-2022 15:03-0400 Body temperature 98.49 [degF] [facility] COMPUTER SYSTEMS MANAGER.LOADING UNIT OPERATOR [employer]ING Work Phone: [facility] 01-15-2022 15:03-0400 Body weight 96.71 [facility] COMPUTER SYSTEMS MANAGER.LOADING UNIT OPERATOR [employer] Work Phone: [facility] 01-15-2022 15:03-0400 Diastolic blood pressure 88 mm[Hg] [facility] COMPUTER SYSTEMS MANAGER.LOADING UNIT OPERATOR [employer] Work Phone: [facility] 01-15-2022 15:03-0400 Heart rate 68 /min [facility] COMPUTER SYSTEMS MANAGER.LOADING UNIT OPERATOR [employer] Work Phone: [facility] 01-15-2022 15:03-0400 Respiratory rate 18 /min [facility] COMPUTER SYSTEMS MANAGER.LOADING UNIT OPERATOR [employer] Work Phone: [facility] 01-15-2022 15:03-0400 SaO2% (BldA) [Mass fraction] 98 % [facility] COMPUTER SYSTEMS MANAGER.LOADING UNIT OPERATOR [employer] Work Phone: [facility] 01-15-2022 15:03-0400 Systolic blood pressure 126 mm[Hg] [facility] COMPUTER SYSTEMS MANAGER.LOADING UNIT OPERATOR [employer] Work Phone: [facility] 09-24-2021 12:10-0400 Body height 177.8 cm [facility] Work Phone: 09-24-2021 12:10-0400 Body mass index (BMI) [Ratio] 25.1 kg/m2 [facility] Work Phone: 09-24-2021 12:10-0400 Body temperature 97.7 [degF] [facility] Work Phone: 09-24-2021 12:10-0400 Body weight 79.37 kg [facility] Work Phone: 09-24-2021 12:10-0400 Diastolic blood pressure 85 mm[Hg] [facility] Work Phone: 09-24-2021 12:10-0400 Heart rate 99 /min [facility] Work Phone: 09-24-2021 12:10-0400 Respiratory rate 14 /min [facility] Work Phone: 09-24-2021 12:10-0400 SaO2% (BldA) [Mass fraction] 97 % [facility] Work Phone: 09-24-2021 12:10-0400 Systolic blood pressure 120 mm[Hg] [facility] Work Phone: Encounters Encounter Date Encounter Type Care Provider Facility Start: 01-21-2023 End: 01-21-2023 ambulatory LANDY PEREIRA Facility:[facility] Start: 01-21-2023 End: 01-21-2023 Nursing evaluation of patient and report Nurse [facility] Work Phone: General Surgery Comment on above: Pilonidal cyst with abscess (Primary Dx) Start: 01-17-2023 End: 01-17-2023 ambulatory LANDY PEREIRA Facility:[facility] Start: 01-17-2023 End: 01-17-2023 Patient encounter procedure Landy Pereira MD Work Phone: General Surgery Comment on above: Pilonidal cyst with abscess; Postoperative pain Start: 01-15-2023 End: 01-15-2023 ambulatory LANDY PEREIRA Facility:[facility] Start: 01-15-2023 End: 01-15-2023 Patient encounter procedure Saul Clark MD Work Phone: [facility] Comment on above: Pilonidal cyst with abscess (Primary Dx) Start: 04-27-2022 End: 04-27-2022 Emergency department patient visit Ken Lynn Facility:[facility] Start: 04-27-2022 End: 04-27-2022 Emergency department patient visit No Primary Care Physician [facility] Start: 04-18-2022 End: 04-18-2022 ambulatory Roula Awad Facility:[facility] Start: 04-18-2022 End: 04-18-2022 ambulatory No Primary Care Physician [facility] Work Phone: Start: 04-18-2022 End: 04-18-2022 Patient encounter procedure No Primary Care Physician [facility] Internal Medicine Start: 04-10-2022 ambulatory Lilian Mckeon Facility: [facility] Start: 04-10-2022 Non-patient / Non-visit No Jazmyn duncan Care Physician [facility] Internal [facility] Start: 01-22-2022 End: 01-22-2022 Emergency department patient visit Ken Lynn Facility:[facility] Start: 01-22-2022 End: 01-22-2022 Emergency department patient visit No Primary Care Physician [facility]Emergency [facility] Start: 01-16-2022 Telephone encounter Vasyl dutta COMPUTER SYSTEMS MANAGER.LOADING UNIT OPERATOR [employer] Work Phone: [facility] Comment on above: Results Start: 01-15-2022 End: 01-15-2022 Patient encounter procedure Vasyl Koenig COMPUTER SYSTEMS MANAGER.LOADING UNIT OPERATOR [employer] Work Phone: [facility] Comment on above: Suspected COVID-19 v irus infection (Primary Dx) Start: 09-24-2021 End: 09-24-2021 Emergency department patient visit Filippo Holly Facility:[facility] Start: 09-24-2021 End: 09-24-2021 Emergency department patient visit [facility] Start: 03-23-2020 Viral antibody level - finding [facility] Start: 01-25-2020 End: 01-25-2020 Patient encounter procedure [facility] Start: 04-14-2019 End: 04-14-2019 Patient encounter procedure JANUSZ SRINIVASAN [facility] Start: 04-12-2019 End: 04-12-2019 Emergency department patient visit ANANDA CANTU [facility] Start: 04-03-2019 End: 04-03-2019 Emergency department patient visit IFEANYI COBURN [facility] Start: 04-02-2019 End: 04-02-2019 Emergency department patient visit DOCTOR ON NO [facility] Procedures Date Procedure Procedure Detail Performing Clinician Start: 04-27-2022 Plain x-ray of pelvi s and lower extremity No Primary Care Physician Start: 04-27-2022 X-ray of lumbar spin e, two or three views No Primary Care Physician Start: 09-24-2021 CT of head without contrast Start: 09-24-2021 Plain X-ray of shoulder Plan of Treatment Date Care Activity Detail Author Start: 11-15-2022 Influenza vaccination Influenza Vacc ine (#1) [facility] Start: 04-18-2022 Patient referral [facility] Work Phone: Start: 03-17-2022 Depression Assessment [facility] Start: 01-15-2022 End: 01-29-2022 SARS-CoV-2 (COVID-19) RNA [Presence] in Respiratory specimen by DM with probe detection 2019 CORONAVIRUS Microbiology Routine Suspected COVID-19 virus infection Expected: 01/15/2022, Expires: 01/29/2022 [facility] Work Phone: Comment on above: Expected: 01/15/2022 , Expires: 01/29/2022 Start: 11-15-2021 Influenza vaccination INFLUENZA (#1) [facility] Start: 03-17-2021 [facility] Start: 06-07-2017 Urine microalbumin profile [facility] Start: 10-28-2013 HEPATITIS C SCREENING HEPATITIS C [facility] Start: 10-28-2013 HIV SCREENING HIV SCREENING [facility] Start: 06-30-2013 HPV VACCINE (2 - Mal e 3-dose series) HPV VACCINE (2 - Male 3-dose series) [facility] Start: 10-28-2009 PEDS TO ADULT TRANSITION ANNUAL ASSESSMENT PEDS TO ADULT TRANSITION ANNUAL ASSESSMENT [facility] Start: 2007 PEDS TO ADULT TRANSITION INITIAL DISCUSSION PEDS TO ADULT TRANSITION INITIAL DISCUSSION [facility] Start: 10-28-2001 PNEUMOCOCCAL (1 - PCV) PNEUMOCOCCAL (1 - PCV) [facility] Start: 10-28-2001 Pneumococcal vaccination Pneumococcal Vaccine (1 - PCV) [facility] Start: 04-30-1996 COVID-19 VACCINE (#1) COVID-19 VACCI NE (#1) [facility] Patient Education [facility] Work Phone: Patient referral [facility] Work Phone: Tobacco use cessatio n education [facility] Immunizations Immunization Date Immunization Notes Care Provider Basilia richard 06-02-2013 human papilloma viru s vaccine, quadrivalent Vasyl Pendlebury COMPUTER SYSTEMS MANAGER.LOADING UNIT OPERATOR [employer] Work Phone: [facility] 06-02-2013 Meningococcal, MCV4, unspecified conjugate formulation(groups A, C, Y and W-135) Vasyl Pendlebury COMPUTER SYSTEMS MANAGER.LOADING UNIT OPERATOR [employer]ING Work Phone: [facility] 02-06-2010 influenza virus vaccine, unspecified formulation Vasyl Pendlebury COMPUTER SYSTEMS MANAGER.LOADING UNIT OPERATOR [employer] Work Phone: [facility] 09-12-2009 hepatitis A vaccine, unspecified formulation Vasyl Pendlebury COMPUTER SYSTEMS MANAGER.LOADING UNIT OPERATOR [employer] Work Phone: [facility] 02-07-2009 novel [id number], preservative-free, injectable No Primary Care Physician [facility] 01-25-2009 influenza virus vaccine, unspecified formulation Vasyl Pendlebury COMPUTER SYSTEMS MANAGER.LOADING UNIT OPERATOR [employer] Work Phone: [facility] Work Phone: 06-21-2008 hepatitis A vaccine, unspecified formulation Vasyl Pendlebury COMPUTER SYSTEMS MANAGER.LOADING UNIT OPERATOR [employer] Work Phone: [facility] Work Phone: 06-21-2008 varicella virus vaccine Vasyl Pendlebury COMPUTER SYSTEMS MANAGER.LOADING UNIT OPERATOR [employer] Work Phone: [facility] Work Phone: 12-18-2007 influenza virus vaccine, unspecified formulation Vasyl Pendlebury COMPUTER SYSTEMS MANAGER.LOADING UNIT OPERATOR [employer] Work Phone: [facility] Work Phone: 06-08-2007 Meningococcal, MCV4, unspecified conjugate formulation(groups A, C, Y and W-135) Vasyl Pendlebury COMPUTER SYSTEMS MANAGER.LOADING UNIT OPERATOR [employer]ING Work Phone: [facility] 06-08-2007 poliovirus vaccine, inactivated Vasyl Pendlebury COMPUTER SYSTEMS MANAGER.LOADING UNIT OPERATOR [employer] Work Phone: [facility] 06-08-2007 tetanus toxoid, reduced diphtheria toxoid, and acellular pertussis vaccine, adsorbed Vasyl [facility] COMPUTER SYSTEMS MANAGER.LOADING UNIT OPERATOR P[employer]ING Work Phone: [facility] 05-12-2007 haemophilus influenz ae type b vaccine, HbOC conjugate Vasyl Koenig COMPUTER SYSTEMS MANAGER.[facility] Work Phone: [facility] Work Phone: 02-11-2007 influenza virus vaccine, unspecified formulation Vasyl Pendisdra COMPUTER SYSTEMS MANAGER.[facility] Work Phone: [facility] Work Phone: 01-16-2006 influenza virus vaccine, unspecified formulation Vasyl Pendsidra COMPUTER SYSTEMS MANAGER.[facility] Work Phone: [facility] Work Phone: 01-21-2005 influenza virus vaccine, unspecified formulation Vasyl Pendsidra COMPUTER SYSTEMS MANAGER.[facility] Work Phone: [facility] Work Phone: 03-22-2003 influenza virus vaccine, unspecified formulation Vasyl Pendlebury COMPUTER SYSTEMS MANAGER.[facility] Work Phone: [facility] Work Phone: 02-19-2003 influenza virus vaccine, unspecified formulation Vasylmayra Posadasardi COMPUTER SYSTEMS MANAGER.[facility] Work Phone: [facility] Work Phone: 01-14-2000 diphtheria, tetanus toxoids and acellular pertussis vaccine Vasylmayra Koenig COMPUTER SYSTEMS MANAGER.LOADING UNIT OPERATOR [employer] Work Phone: [facility] Work Phone: 01-14-2000 measles, mumps and rubella virus vaccine Vasyl Pendlebury COMPUTER SYSTEMS MANAGER.[facility] Work Phone: [facility] Work Phone: 01-14-2000 poliovirus vaccine, inactivated Vasylmayra Koenig COMPUTER SYSTEMS MANAGER.LOADING UNIT OPERATOR [employer] Work Phone: [facility] Work Phone: 05-12-1997 diphtheria, tetanus toxoids and acellular pertussis vaccine Vasyl Koenig COMPUTER SYSTEMS MANAGER.LOADING UNIT OPERATOR [employer] Work Phone: [facility] Work Phone: 05-12-1997 hepatitis B vaccine, pediatric or pediatric/adolescent dosage Vasyl Pendlebury COMPUTER SYSTEMS MANAGER.LOADING UNIT OPERATOR [employer] Work Phone: [facility] Work Phone: 05-12-1997 trivalent poliovirus vaccine, live, oral Vasyl Posadasbury COMPUTER SYSTEMS MANAGER.LOADING UNIT OPERATOR [employer] Work Phone: [facility] Work Phone: 11-01-1996 measles, mumps and rubella virus vaccine Vasylmayra Koenig COMPUTER SYSTEMS MANAGER.[facility] Work Phone: [facility] Work Phone: 11-01-1996 varicella virus vaccine Vasyl Koenig COMPUTER SYSTEMS MANAGER.[facility] Work Phone: [facility] Work Phone: 05-04-1996 DTaP-Haemophilus influenzae type b conjugate vaccine Vasyl Koenig COMPUTER SYSTEMS MANAGER.LOADING UNIT OPERATOR [employer] Work Phone: [facility] Work Phone: 05-04-1996 hepatitis B vaccine, pediatric or pediatric/adolescent dosage Vasyl Pendsidra COMPUTER SYSTEMS MANAGER.[facility] Work Phone: [facility] Work Phone: 03-01-1996 DTaP-Haemophilus influenzae type b conjugate vaccine Vasyl Koenig COMPUTER SYSTEMS MANAGER.[facility] Work Phone: [facility] Work Phone: 03-01-1996 hepatitis B vaccine, pediatric or pediatric/adolescent dosage Vasyl Koenig COMPUTER SYSTEMS MANAGER.LOADING UNIT OPERATOR [employer] Work Phone: [facility] Work Phone: 03-01-1996 poliovirus vaccine, inactivated Vasyl [facility] COMPUTER SYSTEMS MANAGER.LOADING UNIT OPERATOR [employer] Work Phone: [facility] Work Phone: 01-05-1996 DTaP-Haemophilus influenzae type b conjugate vaccine Vasyl Pendnorisbury COMPUTER SYSTEMS MANAGER.[facility] Work Phone: [facility] Work Phone: 01-05-1996 hepatitis B vaccine, pediatric or pediatric/adolescent dosage Vasyl Koenig COMPUTER SYSTEMS MANAGER.LOADING UNIT OPERATOR [employer] Work Phone: [facility] Work Phone: 01-05-1996 poliovirus vaccine, inactivated Vasyl Posadasadri COMPUTER SYSTEMS MANAGER.LOADING UNIT OPERATOR [employer] Work Phone: [facility] Work Phone: Payers Date Payer Category Payer Medicaid [employer] [place] [id number] 2023-Present [phone] [address] [place] [address] Medicaid [id number] 2022 Unknown [id number] 2022 Medicaid [id number] 2021 Self-pay [id number] 2021 Unknown [id number] 2010 Unknown [id number] 1995 Unknown [id number] 1995 Unknown [id number] 1995 Unknown [id number] Unknown [id number] Unknown [id number] Unknown [id number] Unknown [id number] Unknown [id number] Unknown [id number] Social History Date Type Detail Facility Start: 09-24-2021 End: 04-27-2022 Tobacco smoking status CTIS Unknown if ever smoked [facility] Start: 03-23-2020 Chew [facility] Start: 1995 Sex Assigned At Male W [facility] Start: 01-15-2022 Tobacco smoking stat RUSTIS Smokes tobacco daily [facility] Start: 01-15-2022 Tobacco use and exposure User of smokeless tobacco [facility] History of tobacco use Chews Tobacco [facility] Start: 01-15-2022 End: 01-15-2023 Alcohol intake Current non-drinker of alcohol (finding) [facility] Start: 1995 Sex Assigned At Not on file C [facility] Start: 01-05-2022 End: 01-15-2022 Exposure to SARS-CoV-2 (event) Not sure [facility] Work Phone: Start: 01-15-2023 End: 01-17-2023 History of Social function [facility] Start: 1995 End: 01-15-2023 Tobacco use panel [facility] National Score (1-100), lower number is lower risk Not on file [facility] Start: 01-17-2023 Alcohol intake Current drinke r of alcohol (finding) [facility] Medical Equipment Procedure Code Equipment Code Equipment Original Text Equi pment Identifier Dates Procedure Implant ([id number]) Clinical Notes 01-15-2022 to 01-21-2023 Duncan Lo LPN - 01/21/2023 8:40 AM ESTPatient Mariela Marcelino RN - 01/17/2023 3:40 PM Landy Carlisle MD - 01/17/2023 3:15 PM Park Nichols RN - 01/17/2023 3:13 PM EDT Note Date & Type Note Facility 01-21-2023 Nurse Note Dressing change pilonidal cyst, bandage removed, and gauze soaked with normal saline, removed gauze. Wound red and beefy, jeannie wound dry pink and intact, lightly packed with dampened gauze, and cover with clear dressing. Patient tolerated well. Duncan Lo LPN documented in this encounter [facility] 01-17-2023 Note HNO ID: [id number] Author: Mariela Askew RN Service: ? Author Type: Registered Nurse Type: Procedures Filed: 01/18/2023 4:05 PM Note Text: UNIVERSAL PROTOCOL / SAFETY CHECKLIST Procedure to be Performed: Incision and drainage of pilonidal cyst abscess Sign In: A Moment of CARE was completed. Personnel directly involved with the procedure wore the appropriate PPE (Personal Protective Equipment). No special equipment needed. Patient/Surrogate Stated/Verified: PATIENT VERIFIED(optional for EMERGENT procedures): Patient name, Date of , Relevant allergies, and The intended procedure Time Out Communication: Intended patient and procedure match the source documents. Consent documented and matches the intended procedure. Relevant labs, photos, and/or imaging studies have been reviewed. Correct side/site marked and visible. Medications required for procedure verified. No fire risk assessment and interventions applicable. No implant(s) inserted. Sign Out: SIGN OUT (optional for EMERGENT procedures): No specimen collected. No instruments, equipment or retained foreign bodies applicable. Post-procedure follow-up management communicated and Plan of Care Visit completed when applicable. Mariela Askew RN [facility] 01-17-2023 Note HNO ID: [id number] Author: Landy Pereira MD Service: ? Author Type: Physician Type: Progress Notes Filed: 01/18/2023 4:05 PM Note Text: Stephania Oro 1995 REFERRING PHYSICIAN: Saul Clark MD CHIEF COMPLAINT: Consult (Pilonidal cyst) HPI: The patient is a 27 year old male presents with pilonidal cyst abscess for less than a week He denies previous incision and drainage and/or surgeries to this location. He had been scheduled for surgery in 2019, but this was cancelled. He states that the area spontaneously ruptured and nothing further was required. He is presently on augmentin. He denies cigarettes use, admits to vaping. He denies diabetes. He denies fevers PAST MEDICAL HISTORY Diagnosis Date ADD (attention deficit disorder) 06/07/2009 Depression with suicidal ideation Pilonidal cyst 04/12/2019 PMH - PAST MEDICAL HISTORY OF 06/08/2007 normal color vision PMH - PAST MEDICAL HISTORY OF right pinky fracture PMH - PAST MEDICAL HISTORY OF "high" right ventricle Sacrococcygeal disorders, not elsewhere classified Unspecified asthma(493.90) PAST SURGICAL HISTORY Procedure Laterality Date CIRCUMCISION LAPAROSCOPIC APPENDECTOMY 03-30-10 Current Outpatient Medications Medication Sig amoxicillin-clavulanate potassium (AUGMENTIN) 875-125 mg per tablet Take 1 tablet by mouth two times a day for 7 days. albuterol HFA (PROVENTIL HFA, VENTOLIN HFA) 90 mcg/actuation inhaler Inhale 2 Puffs as instructed every 4 hours as needed for Wheezing/Shortness of Breath. (Patient not taking: Reported on 01/15/2023) No current facility-administered medications for this visit. ALLERGIES: Dust and Trees PERSONAL HISTORY: Social History Tobacco Use Smoking status: Every Day Smokeless tobacco: Current Types: Chew Substance Use Topics Alcohol use: Yes Drug use: Yes Types: Marijuana, Amphetamines FAMILY HISTORY Problem Relation Age of Onset Heart Maternal Grandmother Cancer Maternal Grandfather Emphysema Paternal Grandmother Asthma Father The review of systems data was entered by the nurse and reviewed by il Nursing Notes: Park Hernandez RN 01/17/2023 3:15 PM Signed REVIEW OF SYSTEMS: General: The patient NOTES fatigue, denies weight loss, denies weight gain, denies feeling hot, and denies feelings of cold. Eyes: The patient denies glaucoma, denies eye injury/surgery, does not wear glasses or contacts. Ear/Nose/Throat: The patient NOTES allergies, denies hayfever, denies ear infections, and denies bloody noses. Cardiovascular: The patient denies chest pain, denies heart disease, denies high blood pressure,denies cardiac stent, denies prior heart attack, NOTES irregular heart beat, denies high cholesterol, denies poor circulation, denies heart failure, other cardiac issues, denies claudication, denies cold feet, denies peripheral arterial stent. Respiratory: The patient denies tuberculosis, denies pneumonia, denies frequent cough, denies pulmonary embolism, denies shortness of breath, and denies coughing up blood. Gastrointestinal: The patient denies difficulty swallowing, denies acid reflux, denies ulcers, denies vomiting, denies jaundice/hepatitis, denies gallbladder problems, denies black or tarry stools, denies hemorrhoids, denies bleeding from rectum, denies diverticulitis, denies constipation, denies diarrhea, denies loss of stool control, and denies hernias. Kidney/Bladder: The patient denies kidney stones, denies urine infections, and denies bloody urine. Skin: The patient denies a history of skin cancer, denies bleeding/changing moles, and denies a history of skin rash. Neurologic: The patient denies a history of epilepsy/convulsions, denies headaches, denies head/spinal injuries, and denies stroke/TIA. Psychiatric: The patient denies psychiatric medications, denies depression, and denies voices, NOTES substance abuse. Endocrine: The patient denies thyroid disorders, denies diabetes, and denies hormonal problems. Hematologic: The patient denies a history of bruising, denies bleeding, and denies anemia, denies blood clots. Infections: The patient denies a history of measles and mumps, denies rheumatic fever, and denies sexually transmitted diseases. Musculoskeletal: The patient denies back pain/injury, denies back problems, denies sciatica, denies knee/foot trouble, denies arthritis, or denies gout. When was patient's last Mammogram screening? N/A Last Colonoscopy: None Park Hernandez RN PHYSICAL EXAMINATION: General: The patient is 27 year old male, well nourished, well hydrated in no acute distress. The patient is oriented to time, place, and person. VITALS: Blood pressure 110/70, pulse 95, temperature 36.4 ?C (97.5 ?F), height 177.8 cm (5' 10"), weight 104.1 kg (229 lb 9.6 oz), SpO2 99 %. Body mass index is 32.94 kg/m?. Head: Normal cephalic, atraumatic Eyes: pupils are equally r (more content not included)... [facility] 01-17-2023 Instructions Mariela Askew RN - 01/17/2023 3:51 PM EDT The following instructions are important for you related to your office visit today with the [facility]. Instructions After I & D PILONIDAL CYST The packing be removed by us on Friday. Please bring someone to your appointment with you to learn to do dressing changes. There may be some bleeding as the packing is removed. This may be controlled with direct pressure. The redness, swelling and discomfort should decrease after drainage of your pilonidal abscess. If the redness, swelling, or discomfort increase or you start having high fevers, contact our office immediately. If you notice continued issues with drainage from the site, or other difficulties or concerns, you should contact our office immediately @ [phone]. If you note any additional difficulties, questions, or concerns, you should contact our office immediately @ [phone] and ask to be transferred to the General Surgery department. documented in this encounter [facility] 01-17-2023 Procedure note UNIVERSAL PROTOCOL / SAFETY CHECKLIST Procedure to be Performed: Incision and drainage of pilonidal cyst abscess Sign In: A Moment of CARE was completed. Personnel directly involved with the procedure wore the appropriate PPE (Personal Protective Equipment). No special equipment needed. Patient/Surrogate Stated/Verified: PATIENT VERIFIED(optional for EMERGENT procedures): Patient name, Date of , Relevant allergies, and The intended procedure Time Out Communication: Intended patient and procedure match the source documents. Consent documented and matches the intended procedure. Relevant labs, photos, and/or imaging studies have been reviewed. Correct side/site marked and visible. Medications required for procedure verified. No fire risk assessment and interventions applicable. No implant(s) inserted. Sign Out: SIGN OUT (optional for EMERGENT procedures): No specimen collected. No instruments, equipment or retained foreign bodies applicable. Post-procedure follow-up management communicated and Plan of Care Visit completed when applicable. Mariela Askew RN documented in this encounter [facility] 01-17-2023 History of Presen t illness Narrative Stephaniarashmi Oro 1995 REFERRING PHYSICIAN: Saul Clark MD CHIEF COMPLAINT: Consult (Pilonidal cyst) HPI: The patient is a 27 year old male presents with pilonidal cyst abscess for less than a week He denies previous incision and drainage and/or surgeries to this location. He had been scheduled for surgery in 2019, but this was cancelled. He states that the area spontaneously ruptured and nothing further was required. He is presently on augmentin. He denies cigarettes use, admits to vaping. He denies diabetes. He denies fevers PAST MEDICAL HISTORY Diagnosis Date ADD (attention deficit disorder) 06/07/2009 Depression with suicidal ideation Pilonidal cyst 04/12/2019 PMH - PAST MEDICAL HISTORY OF 06/08/2007 normal color vision PMH - PAST MEDICAL HISTORY OF right pinky fracture PMH - PAST MEDICAL HISTORY OF "high" right ventricle Sacrococcygeal disorders, not elsewhere classified Unspecified asthma(493.90) PAST SURGICAL HISTORY Procedure Laterality Date CIRCUMCISION LAPAROSCOPIC APPENDECTOMY 03-30-10 Current Outpatient Medications Medication Sig amoxicillin-clavulanate potassium (AUGMENTIN) 875-125 mg per tablet Take 1 tablet by mouth two times a day for 7 days. albuterol HFA (PROVENTIL HFA, VENTOLIN HFA) 90 mcg/actuation inhaler Inhale 2 Puffs as instructed every 4 hours as needed for Wheezing/Shortness of Breath. (Patient not taking: Reported on 01/15/2023) No current facility-administered medications for this visit. ALLERGIES: Dust and Trees PERSONAL HISTORY: Social History Tobacco Use Smoking status: Every Day Smokeless tobacco: Current Types: Chew Substance Use Topics Alcohol use: Yes Drug use: Yes Types: Marijuana, Amphetamines FAMILY HISTORY Problem Relation Age of Onset Heart Maternal Grandmother Cancer Maternal Grandfather Emphysema Paternal Grandmother Asthma Father The review of systems data was entered by the nurse and reviewed by il Nursing Notes: Park Hernandez RN 01/17/2023 3:15 PM Signed REVIEW OF SYSTEMS: General: The patient NOTES fatigue, denies weight loss, denies weight gain, denies feeling hot, and denies feelings of cold. Eyes: The patient denies glaucoma, denies eye injury/surgery, does not wear glasses or contacts. Ear/Nose/Throat: The patient NOTES allergies, denies hayfever, denies ear infections, and denies bloody noses. Cardiovascular: The patient denies chest pain, denies heart disease, denies high blood pressure,denies cardiac stent, denies prior heart attack, NOTES irregular heart beat, denies high cholesterol, denies poor circulation, denies heart failure, other cardiac issues, denies claudication, denies cold feet, denies peripheral arterial stent. Respiratory: The patient denies tuberculosis, denies pneumonia, denies frequent cough, denies pulmonary embolism, denies shortness of breath, and denies coughing up blood. Gastrointestinal: The patient denies difficulty swallowing, denies acid reflux, denies ulcers, denies vomiting, denies jaundice/hepatitis, denies gallbladder problems, denies black or tarry stools, denies hemorrhoids, denies bleeding from rectum, denies diverticulitis, denies constipation, denies diarrhea, denies loss of stool control, and denies hernias. Kidney/Bladder: The patient denies kidney stones, denies urine infections, and denies bloody urine. Skin: The patient denies a history of skin cancer, denies bleeding/changing moles, and denies a history of skin rash. Neurologic: The patient denies a history of epilepsy/convulsions, denies headaches, denies head/spinal injuries, and denies stroke/TIA. Psychiatric: The patient denies psychiatric medications, denies depression, and denies voices, NOTES substance abuse. Endocrine: The patient denies thyroid disorders, denies diabetes, and denies hormonal problems. Hematologic: The patient denies a history of bruising, denies bleeding, and denies anemia, denies blood clots. Infections: The patient denies a history of measles and mumps, denies rheumatic fever, and denies sexually transmitted diseases. Musculoskeletal: The patient denies back pain/injury, denies back problems, denies sciatica, denies knee/foot trouble, denies arthritis, or denies gout. When was patient's last Mammogram screening? N/A Last Colonoscopy: None Prak Hernandez RN PHYSICAL EXAMINATION: General: The patient is 27 year old male, well nourished, well hydrated in no acute distress. The patient is oriented to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
--- NOTE | 2024-09-01 15:00 | CM.ED ---
Social Work Reason for visit: Vannessa MCDOWELL met with patients parents when they arrived at the ER. Emotional support and active listening provided. Lindsay López, USED [employer]ARD WORKER, FIRST OFFICER AND FLIGHT INSTRUCTOR
== END 2024-09-01 11:20 ==
PROVIDERS: Emergency Provider Emergency Medicine; PCP Internal Medicine; Visit Provider Emergency Medicine
DX: I46.9 Cardiac arrest, cause unspecified (principal); F17.220 Nicotine dependence, chewing tobacco, uncomplicated; F17.210 Nicotine dependence, cigarettes, uncomplicated
CPT/HCPCS: 99282